=== PATIENT | male | born 1970 | race Caucasian/White ===

== ENCOUNTER 2017-06-12 11:31 | Observation (INO) | payer OTHER ==
[~2017-06-12] VITALS: Ht 170.2 cm; Wt 71.1 kg
[~2017-06-12 11:31] MED LIST: ACET120S PR; ALPR.25 PO; AMLO10 PO; AMOX500 PO; BUSP15 PO; CYCL10 PO; ESCI10 PO; GABA100 PO; HTN MED; HYDACE5 PO; IBUP400 PO; IBUP800 PO; LISI20 PO; METPRE4DP PO; NAPR500 PO; Pepcid20 MG PO; RXHYDACE PO; SILSUL1TC TOP; TRAM50 PO; TRAZ50 PO; Tylenol325 MG PO; Zestril30 MG PO
[2017-06-12] MEDS ORDERED: AMLO10 PO (11:58)
[2017-06-12] MEDS ORDERED: CITA20 PO (11:59)
[2017-06-12 12:38] LABS: BASOPHILS ABSOLUTE AUTO 0.02 K/mm3 (0.00-0.23); BASOPHILS PERCENT AUTO 0 % (0-2); EOSINOPHILS PERCENT AUTO 0 % (0-6); Hematocrit 42.5 % (37.0-53.0); Hemoglobin 14.8 g/dL (13.5-17.5); IMMATURE GRAN ABSOLUTE AUTO 0.03 K/mm3 (0.00-0.10); IMMATURE GRAN PERCENT AUTO 0 % (0-1); LYMPHOCYTES ABSOLUTE AUTO 1.12 K/mm3 (0.84-5.20); LYMPHOCYTES PERCENT AUTO 13 % (21-46); MONOCYTES ABSOLUTE AUTO 0.67 K/mm3 (0.16-1.47); MONOCYTES PERCENT AUTO 8 % (4-13); Mean Corpuscular HGB Conc 34.8 g/dL (31.5-36.5); Mean Corpuscular Volume 92 fL (80-100); Mean Platelet Volume 9.6 fL (9.1-12.4); NEUTROPHILS ABSOLUTE AUTO 7.09 K/mm3 (1.96-9.15); NEUTROPHILS PERCENT AUTO 80 % (41-73); Platelet Count 182 K/mm3 (150-400); RDW Coefficient Variation 12.8 % (11.7-14.2); RDW Standard Deviation 43.2 fL (35.1-46.3); Red Blood Cell Count 4.63 M/mm3 (4.30-5.90); White Blood Cell Count 8.93 K/mm3 (4.00-11.30)
[2017-06-12 12:59] LABS: Alanine Aminotransfer (ALT/SGP 40 U/L (12-78); Albumin, Blood 4.4 g/dL (3.4-5.0); Albumin/Globulin Ratio 1.2 (0.8-1.8); Alk Phos 93 U/L (50-136); Anion Gap 4 mmol/L (6-16); Aspartate Aminotrans (AST/SGOT 26 U/L (12-37); Bilirubin, Total 0.5 mg/dL (0.1-1.0); Blood Urea Nitrogen 11 mg/dL (8-24); Bun/Creatinine Ratio 18.1 (12.0-20.0); CO2, Blood 28 mmol/L (21-32); Calcium, Blood 9.3 mg/dL (8.5-10.1); Chloride, Blood 102 mmol/L (98-108); Creatinine, Blood 0.61 mg/dL (0.60-1.20); Globulin, Blood 3.8 g/dL (2.2-4.0); Glomerular Filtration Rate >60 (60-); Glucose, Blood 99 mg/dL (70-99); Potassium, Blood 3.9 mmol/L (3.5-5.5); Sodium, Blood 134 mmol/L (136-145); Total Protein, Blood 8.2 g/dL (6.4-8.2); Troponin I <0.015 ng/mL (0.000-0.040)
[2017-06-12 13:26] LABS: U Amphetamine Screen Not Detected; U Barbituate Screen Not Detected; U Benzodiazapine Screen Not Detected; U Buprenorphine Screen Not Detected; U Cannabinoids Screen Not Detected; U Cocaine Screen Not Detected; U Methadone Screen Not Detected; U Methamphetamine Screen Not Detected; U Opiates Screen Not Detected; U Oxycodone Screen Not Detected; U Phencyclidine Screen Not Detected; U Propoxyphene Screen Not Detected
[2017-06-12] MEDS ORDERED: ASPI81CH PO (16:56)
== END 2017-06-13 16:07 | disposition home or self-care (01) ==
LOC: ER 11:31 → MEDS 11:32 → ENPENDDIS 06-13 10:00 → MEDS 06-13 16:07
PROVIDERS: Emergency Medicine
DX: R07.9 Chest pain, unspecified (principal); I10 Essential (primary) hypertension; F17.210 Nicotine dependence, cigarettes, uncomplicated; F41.8 Other specified anxiety disorders; Z79.01 Long term (current) use of anticoagulants; Z88.8 Allergy status to other drugs, medicaments and biological substances; Z79.899 Other long term (current) drug therapy
CPT/HCPCS: 36415; 71046; 80053; 84484; 85025; 93005; 93010; 93017; 96361; 96372; 96374; 99285; G0378; J1650; J3490; J7120

== ENCOUNTER 2018-03-24 23:10 | Observation (INO) | payer OTHER ==
[~2018-03-24] VITALS: Ht 170.2 cm; Wt 71.0 kg
[~2018-03-24 23:10] MED LIST changes: +ACET325 PO; +ASPI325 PO; +ASPI81CH PO; +CITA20 PO; +DOCU100 PO; +METO25ER PO; +NAPR550 PO; +Naltrexone HCl50 MG PO; +Nicotine Patch1 EAC5 TD; +Nitrostat0.4 MG SL; +ONDA4ODT MM; +Triamcinolone A15 G3 TOP
[2018-03-24 23:45] LABS: Calcium, Ionized (POC) 1.05 mmol/L (1.10-1.46); Chloride (POC) 107 mmol/L (98-108); Creatinine (POC) 1.8 mg/dL (0.8-1.3); Glucose (ISTAT POC) 124 mg/dL (70-99); Hemoglobin (POC) 14.6 g/dL (13.5-17.5); Potassium (POC) 4.2 mmol/L (3.5-5.5); Sodium (POC) 137 mmol/L (135-148); Total CO2 (POC) 23 mmol/L (21-32)
[2018-03-24 23:51] LABS: BASOPHILS ABSOLUTE AUTO 0.03 K/mm3 (0.00-0.23); BASOPHILS PERCENT AUTO 1 % (0-2); EOSINOPHILS PERCENT AUTO 0 % (0-6); Hematocrit 41.7 % (37.0-53.0); Hemoglobin 14.3 g/dL (13.5-17.5); IMMATURE GRAN ABSOLUTE AUTO 0.05 K/mm3 (0.00-0.10); IMMATURE GRAN PERCENT AUTO 1 % (0-1); LYMPHOCYTES ABSOLUTE AUTO 1.98 K/mm3 (0.84-5.20); LYMPHOCYTES PERCENT AUTO 35 % (21-46); MONOCYTES ABSOLUTE AUTO 0.51 K/mm3 (0.16-1.47); MONOCYTES PERCENT AUTO 9 % (4-13); Mean Corpuscular HGB 32.6 pg (26.0-34.0); Mean Corpuscular HGB Conc 34.3 g/dL (31.5-36.5); Mean Corpuscular Volume 95 fL (80-100); Mean Platelet Volume 9.5 fL (9.1-12.4); NEUTROPHILS ABSOLUTE AUTO 3.02 K/mm3 (1.96-9.15); NEUTROPHILS PERCENT AUTO 54 % (41-73); Platelet Count 149 K/mm3 (150-400); RDW Coefficient Variation 12.5 % (11.7-14.2); RDW Standard Deviation 44.5 fL (35.1-46.3); Red Blood Cell Count 4.38 M/mm3 (4.30-5.90); White Blood Cell Count 5.59 K/mm3 (4.00-11.30)
[2018-03-25 00:15] LABS: Alanine Aminotransfer (ALT/SGP 50 U/L (12-78); Albumin, Blood 3.8 g/dL (3.4-5.0); Albumin/Globulin Ratio 1.1 (0.8-1.8); Alk Phos 96 U/L (50-136); Anion Gap 11 mmol/L (6-16); Aspartate Aminotrans (AST/SGOT 45 U/L (12-37); Bilirubin, Total 0.2 mg/dL (0.1-1.0); Blood Urea Nitrogen 15 mg/dL (8-24); Bun/Creatinine Ratio 9.7 (12.0-20.0); CO2, Blood 23 mmol/L (21-32); Calcium, Blood 8.2 mg/dL (8.5-10.1); Chloride, Blood 105 mmol/L (98-108); Creatinine, Blood 1.55 mg/dL (0.60-1.20); Ethanol (Alcohol), Blood, Med 269 mg/dL; Globulin, Blood 3.5 g/dL (2.2-4.0); Glomerular Filtration Rate 51 (60-); Glucose, Blood 118 mg/dL (70-99); Potassium, Blood 4.2 mmol/L (3.5-5.5); Salicylate 5.9 mg/dL (2.8-20.0); Sodium, Blood 139 mmol/L (136-145); Total Protein, Blood 7.3 g/dL (6.4-8.2)
[2018-03-25 00:18] LABS: PCO2 Arterial 43.5 mmHg (35-45); PO2 Arterial 104 mmHg (80-100); pH Blood Arterial 7.34 (7.35-7.45)
[2018-03-25 00:22] LABS: Acetaminophen, Random <2.0 ug/mL (10.0-30.0)
[2018-03-25 01:36] LABS: Adenovirus F 40/41 Detected (NOT DETECT); Astrovirus Not Detected (NOT DETECT); Campylobacter Sp Not Detected (NOT DETECT); Cryptosporidium Not Detected (NOT DETECT); Cyclospora Cayetanensis Not Detected (NOT DETECT); E. Coli O157 Not Detected (NOT DETECT); Entamoeba Histolytica Not Detected (NOT DETECT); Enteroaggregative E. coli-EAEC Not Detected (NOT DETECT); Enteropathogenic E. coli-EPEC Detected (NOT DETECT); Enterotoxigenic E. coli-ETEC Not Detected (NOT DETECT); Giardia Lamblia Not Detected (NOT DETECT); Norovirus GI/GII Not Detected (NOT DETECT); Plesiomonas Shigelloides Not Detected (NOT DETECT); Rotavirus A Not Detected (NOT DETECT); Salmonella Sp Not Detected (NOT DETECT); Sapovirus Not Detected (NOT DETECT); Shiga Toxin-prod E. coli-STEC Not Detected (NOT DETECT); Shigella/Enteroin E. coli-EIEC Not Detected (NOT DETECT); Vibrio Cholerae Not Detected (NOT DETECT); Vibrio Sp Not Detected (NOT DETECT); Yersinia Enterocolitica Not Detected (NOT DETECT)
[2018-03-25 01:59] LABS: Troponin I 0.025 ng/mL (0.000-0.040)
[2018-03-25] MEDS ORDERED: GABA100 PO (02:41)
[2018-03-25] MEDS ORDERED: PRAZ1 PO (02:42)
[2018-03-25 02:54] LABS: Source, Urine Clean Catch
[2018-03-25 03:05] LABS: Bilirubin, Urine Neg (Neg); Blood, Urine Neg (Neg); Glucose Qualitative, Urine Neg (Neg); Ketones, Urine 1+ (Neg); Leukocyte Esterase, Urine Neg (Neg); Nitrite, Urine Neg (Neg); Protein, Urine 2+ (Neg); Specific Gravity, Urine 1.015 (1.003-1.022); Urobilinogen, Urine NORM (Normal)
[2018-03-25 03:14] LABS: Appearance, Urine Clear (Clear); Color, Urine Yellow (P-Yellow)
[2018-03-25 03:15] LABS: Amorphous Light (0-Heavy); Bacteria Rare /hpf; Granular Casts 0-2 /lpf (0); Mucus Light (0-Heavy); Red Blood Cells, Urine Not Seen /hpf (0-2); Squamous Epithelial Cells Few /hpf (Few); White Blood Cells, Urine Not Seen /hpf (0-5)
[2018-03-25 03:21] LABS: U Amphetamine Screen Not Detected; U Barbituate Screen Not Detected; U Benzodiazapine Screen Not Detected; U Buprenorphine Screen Not Detected; U Cannabinoids Screen Not Detected; U Cocaine Screen Not Detected; U Methadone Screen Not Detected; U Methamphetamine Screen Not Detected; U Opiates Screen Not Detected; U Oxycodone Screen Not Detected; U Phencyclidine Screen Not Detected; U Propoxyphene Screen Not Detected
[2018-03-25 05:07] LABS: Hematocrit 37.7 % (37.0-53.0); Hemoglobin 12.4 g/dL (13.5-17.5); Mean Corpuscular HGB 31.9 pg (26.0-34.0); Mean Corpuscular HGB Conc 32.9 g/dL (31.5-36.5); Mean Corpuscular Volume 97 fL (80-100); Mean Platelet Volume 9.4 fL (9.1-12.4); Platelet Count 125 K/mm3 (150-400); RDW Coefficient Variation 12.7 % (11.7-14.2); RDW Standard Deviation 45.2 fL (35.1-46.3); Red Blood Cell Count 3.89 M/mm3 (4.30-5.90); White Blood Cell Count 5.71 K/mm3 (4.00-11.30)
[2018-03-25 05:27] LABS: Alanine Aminotransfer (ALT/SGP 44 U/L (12-78); Albumin, Blood 3.5 g/dL (3.4-5.0); Albumin/Globulin Ratio 1.2 (0.8-1.8); Alk Phos 84 U/L (50-136); Anion Gap 9 mmol/L (6-16); Aspartate Aminotrans (AST/SGOT 44 U/L (12-37); Bilirubin, Total 0.5 mg/dL (0.1-1.0); Blood Urea Nitrogen 13 mg/dL (8-24); Bun/Creatinine Ratio 15.6 (12.0-20.0); CO2, Blood 23 mmol/L (21-32); Chloride, Blood 109 mmol/L (98-108); Creatinine, Blood 0.83 mg/dL (0.60-1.20); Globulin, Blood 2.9 g/dL (2.2-4.0); Glomerular Filtration Rate >60 (60-); Glucose, Blood 92 mg/dL (70-99); Sodium, Blood 141 mmol/L (136-145); Total Protein, Blood 6.4 g/dL (6.4-8.2)
[2018-03-25 05:38] LABS: Troponin I 0.021 ng/mL (0.000-0.040)
[2018-03-25 06:00] LABS: CHOL/HDL RATIO 2.4; Cholesterol 197 mg/dL (50-200); HDL Cholesterol 82 mg/dL (>39); LDL/HDL RATIO 1.1; Low Density Lipoprotein Chol 91 mg/dL (0-110); Triglycerides 120 mg/dL (30-160); Very Low Density Lipoprot Chol 24 mg/dL (6-32)
[2018-03-25] MEDS ORDERED: ASPI81CH PO (12:20)
[2018-03-25] MEDS ORDERED: MELATONIN10 M1 PO (12:31)
[2018-03-25] MEDS ORDERED: METO50ER PO (12:31)
[2018-03-25] MEDS ORDERED: NAPR550 PO (12:32)
--- NOTE | 2018-03-25 19:40 | NUR ---
ASSUMED CARE PT RESTING IN ROOM WITH SPOUSE AT BEDSIDE. PER DAY SHIFT PT HAS EXHIBITED FEW WITHDRAWL SYMPTOMS AND WAS MEDICATED ONCE. PT HAS BEEN COOPERATIVE W/ CARE AND USES CALL LIGHT APPROPRIATELY. PT DENIES ABD PAIN. REPORTS MILD HEADACHE. CIWA SCORE OF 4 AT THIS TIME. CALL LIGHT IN REACH. BED ALARM ON FOR SAFETY.
[2018-03-26 04:11] LABS: BASOPHILS ABSOLUTE AUTO 0.02 K/mm3 (0.00-0.23); BASOPHILS PERCENT AUTO 0 % (0-2); EOSINOPHILS PERCENT AUTO 0 % (0-6); Hematocrit 38.8 % (37.0-53.0); IMMATURE GRAN ABSOLUTE AUTO 0.01 K/mm3 (0.00-0.10); IMMATURE GRAN PERCENT AUTO 0 % (0-1); LYMPHOCYTES ABSOLUTE AUTO 0.79 K/mm3 (0.84-5.20); LYMPHOCYTES PERCENT AUTO 16 % (21-46); MONOCYTES PERCENT AUTO 8 % (4-13); Mean Corpuscular HGB 31.9 pg (26.0-34.0); Mean Corpuscular HGB Conc 33.5 g/dL (31.5-36.5); Mean Corpuscular Volume 95 fL (80-100); Mean Platelet Volume 9.9 fL (9.1-12.4); NEUTROPHILS ABSOLUTE AUTO 3.72 K/mm3 (1.96-9.15); NEUTROPHILS PERCENT AUTO 75 % (41-73); Platelet Count 123 K/mm3 (150-400); RDW Coefficient Variation 12.2 % (11.7-14.2); RDW Standard Deviation 42.5 fL (35.1-46.3); Red Blood Cell Count 4.07 M/mm3 (4.30-5.90); White Blood Cell Count 4.94 K/mm3 (4.00-11.30)
[2018-03-26 04:38] LABS: Albumin, Blood 3.6 g/dL (3.4-5.0); Anion Gap 8 mmol/L (6-16); Blood Urea Nitrogen 14 mg/dL (8-24); Bun/Creatinine Ratio 17.9 (12.0-20.0); CO2, Blood 26 mmol/L (21-32); Calcium, Blood 8.6 mg/dL (8.5-10.1); Chloride, Blood 103 mmol/L (98-108); Creatinine, Blood 0.78 mg/dL (0.60-1.20); Glomerular Filtration Rate >60 (60-); Glucose, Blood 90 mg/dL (70-99); Phosphorus, Blood 2.7 mg/dL (2.5-4.9); Potassium, Blood 3.5 mmol/L (3.5-5.5); Sodium, Blood 137 mmol/L (136-145)
--- NOTE | 2018-03-26 05:39 | NUR ---
SHIFT SUMMARY PT SLEEPING IN ROOM COMFORTABLY WITH SPOUSE AT BEDSIDE. PT HAD NO ACUTE CHANGES IN STATUS SINCE ASSESSMENT. CIWA CORES EVALUATED T/O SHIFT FROM 5-7. PT WAS MEDICATED TWICE FOR WITHDRAWL SYMPTOMS. PT CURRENTLY SLEEPING. NO TREMORS NOTED, VISIBLY REDUCED AGGITATION. RESP EVEN UNLABORED ON 2L NC W/ SATS >92%. DENIES PAIN AT THIS TIME. PT DENIES ANY ABD PAIN. REPORTS FEELS HUNGRY. CALL LIGHT IS IN REACH. PT CALLS APPROPRIATELY.
--- NOTE | 2018-03-26 12:30 | NUR ---
Assumed Care: Assumed care of pt at approx 0700. VSS. In no apparent sign of distress. Pt is A&Ox4. CIWA very stable at this time. at bedside. Pt/ educated on ETOH abuse and effect that it has on his liver, and long-term potential consequences of continued drinking. Pt is appropriate at this time. See shift assessment for detailed assessment. Pt is currently resting in bed with call light within reach. Denies any further questions, complaints or requests at thist time. Will continue to monitor.
--- NOTE | 2018-03-26 12:33 | NUR ---
Update: Dr. Toribio in to see pt. Plan is to DC home. Pt will need to follow-up with PCP to obtain prescription for medications to help with withdrawal and possibly need to check in to detox center after DC per Dr. Toribio. Per Dr. Toribio, pt may have 1-2 beers/day once DC home for withdrawals, but needs to follow-up with his PCP and ultimately needs to quit drinking. Pt is currently resting in bed with call light within reach. Denies any further questions, complaints or requests at this time. Will continue to monitor until pt is discharged.
--- NOTE | 2018-03-26 13:11 | NUR ---
Spiritual care visit conducted. Patient was sitting in a chair in his room when I entered the patient's room. Patient and patient's , Sade, welcomed me after I introduced myself and explained the department I am from. Patient and Sade explained about the recent loss of their daughter, the loss of Sade's job and their family unit complications. I listened empathically, provided spiritual direction and grief support and I provided paryer. Patient and Sade responded well to all interventions and showed signs of restored ffaith and renewed hope. Patient and Sade expressed gratitude for my visit
--- NOTE | 2018-03-26 15:54 | NUR ---
Discharge: Pt discharged at approx 1343. VSS. In no apparent sign of distress. Pt discharged with , all belongings in hand and discharge education provided. Pt and family deny any further questions, complaints or requests at time of discharge.
== END 2018-03-26 13:43 | disposition home or self-care (01) ==
LOC: ER 23:10 → PCU 23:11 → ERHOLD 23:11 → PCU 03-25 12:10 → UNDODEPER 03-25 12:16 → PCU 03-26 13:43
PROVIDERS: Emergency Medicine; Family Medicine; ADMIT Internal Medicine
DX: A41.9 Sepsis, unspecified organism (principal); R65.20 Severe sepsis without septic shock; N17.9 Acute kidney failure, unspecified; I95.9 Hypotension, unspecified; F10.129 Alcohol abuse with intoxication, unspecified; K52.9 Noninfective gastroenteritis and colitis, unspecified; I10 Essential (primary) hypertension; F41.9 Anxiety disorder, unspecified; R22.0 Localized swelling, mass and lump, head; R74.8 Abnormal levels of other serum enzymes; L40.9 Psoriasis, unspecified; F17.210 Nicotine dependence, cigarettes, uncomplicated; Z79.899 Other long term (current) drug therapy; Z79.82 Long term (current) use of aspirin; Z88.6 Allergy status to analgesic agent
CPT/HCPCS: 36415; 36600; 70450; 72125; 76705; 80047; 80053; 80061; 80069; 81001; 82550; 82803; 83605; 83690; 84443; 84484; 85014; 85025; 85027; 87040; 87507; 93005; 93010; 96361; 96372; 96374; 96376; 99285-25; G0378; G0480; J1650; J2060; J7030

== ENCOUNTER 2018-11-16 11:24 | Emergency (ER) | payer OTHER ==
[~2018-11-16] VITALS: Ht 170.2 cm; Wt 77.1 kg
[~2018-11-16 11:24] MED LIST changes: +MELATONIN10 M1 PO; +METO50ER PO; +PRAZ1 PO
[2018-11-16] MEDS ORDERED: Augmentin 875-1 EACH PO (13:00)
== END 2018-11-16 13:21 | disposition home or self-care (01) ==
LOC: ER 11:24
DX: S91.152A Open bite of left great toe without damage to nail, initial encounter (principal); I10 Essential (primary) hypertension; F41.9 Anxiety disorder, unspecified; F17.200 Nicotine dependence, unspecified, uncomplicated; Z88.8 Allergy status to other drugs, medicaments and biological substances; Z79.899 Other long term (current) drug therapy; Z79.82 Long term (current) use of aspirin; W53.11XA Bitten by rat, initial encounter
CPT/HCPCS: 99283

== ENCOUNTER 2018-12-11 20:36 | Emergency (ER) | payer OTHER ==
[~2018-12-11] VITALS: Ht 170.2 cm; Wt 68.0 kg
[~2018-12-11 20:36] MED LIST changes: +Augmentin 875-1 EACH PO
[2018-12-11 21:01] LABS: BASOPHILS ABSOLUTE AUTO 0.01 K/mm3 (0.00-0.23); BASOPHILS PERCENT AUTO 0 % (0-2); EOSINOPHILS PERCENT AUTO 0 % (0-6); Hematocrit 45.4 % (37.0-53.0); Hemoglobin 15.4 g/dL (13.5-17.5); IMMATURE GRAN ABSOLUTE AUTO 0.06 K/mm3 (0.00-0.10); IMMATURE GRAN PERCENT AUTO 1 % (0-1); LYMPHOCYTES ABSOLUTE AUTO 0.97 K/mm3 (0.84-5.20); LYMPHOCYTES PERCENT AUTO 11 % (21-46); MONOCYTES ABSOLUTE AUTO 0.18 K/mm3 (0.16-1.47); MONOCYTES PERCENT AUTO 2 % (4-13); Mean Corpuscular HGB 31.2 pg (26.0-34.0); Mean Corpuscular HGB Conc 33.9 g/dL (31.5-36.5); Mean Corpuscular Volume 92 fL (80-100); Mean Platelet Volume 9.6 fL (9.1-12.4); NEUTROPHILS ABSOLUTE AUTO 7.29 K/mm3 (1.96-9.15); NEUTROPHILS PERCENT AUTO 86 % (41-73); Platelet Count 137 K/mm3 (150-400); RDW Coefficient Variation 12.1 % (11.7-14.2); RDW Standard Deviation 41.1 fL (35.1-46.3); Red Blood Cell Count 4.93 M/mm3 (4.30-5.90); White Blood Cell Count 8.51 K/mm3 (4.00-11.30)
[2018-12-11 21:14] LABS: Anion Gap 9 mmol/L (6-16); Blood Urea Nitrogen 14 mg/dL (8-24); CO2, Blood 23 mmol/L (21-32); Chloride, Blood 101 mmol/L (98-108); Creatinine, Blood 0.87 mg/dL (0.60-1.20); Glomerular Filtration Rate >60 (60-); Glucose, Blood 113 mg/dL (70-99); Sodium, Blood 133 mmol/L (136-145)
[2018-12-11] MEDS ORDERED: Pepcid20 MG PO (23:49)
[2018-12-11] MEDS ORDERED: BENADRYL25 MG PO (23:49)
[2018-12-11] MEDS ORDERED: Prednisone20 MG PO (23:49)
== END 2018-12-12 00:44 | disposition home or self-care (01) ==
LOC: ER 20:36
PROVIDERS: Physician Assistant
DX: L50.0 Allergic urticaria (principal); I10 Essential (primary) hypertension; Z88.6 Allergy status to analgesic agent; Z79.82 Long term (current) use of aspirin; Z79.899 Other long term (current) drug therapy; Z87.891 Personal history of nicotine dependence
CPT/HCPCS: 36415; 80048; 85025; 93005; 93010; 96361; 96372-59; 96374; 96375; 99283-25; J1100; J1885; J7030

== ENCOUNTER 2019-02-16 16:34 | Emergency (ER) | payer OTHER ==
[~2019-02-16] VITALS: Ht 170.2 cm; Wt 72.6 kg
[~2019-02-16 16:34] MED LIST changes: +BENADRYL25 MG PO; +Prednisone20 MG PO
[2019-02-16 17:53] LABS: Source, Urine Clean Catch
[2019-02-16 17:53] LABS: BASOPHILS ABSOLUTE AUTO 0.03 K/mm3 (0.00-0.23); BASOPHILS PERCENT AUTO 1 % (0-2); EOSINOPHILS PERCENT AUTO 0 % (0-6); Hematocrit 42.8 % (37.0-53.0); Hemoglobin 14.2 g/dL (13.5-17.5); IMMATURE GRAN ABSOLUTE AUTO 0.01 K/mm3 (0.00-0.10); IMMATURE GRAN PERCENT AUTO 0 % (0-1); LYMPHOCYTES ABSOLUTE AUTO 0.72 K/mm3 (0.84-5.20); LYMPHOCYTES PERCENT AUTO 18 % (21-46); MONOCYTES ABSOLUTE AUTO 0.36 K/mm3 (0.16-1.47); MONOCYTES PERCENT AUTO 9 % (4-13); Mean Corpuscular HGB 30.5 pg (26.0-34.0); Mean Corpuscular HGB Conc 33.2 g/dL (31.5-36.5); Mean Corpuscular Volume 92 fL (80-100); Mean Platelet Volume 9.1 fL (9.1-12.4); NEUTROPHILS ABSOLUTE AUTO 2.89 K/mm3 (1.96-9.15); NEUTROPHILS PERCENT AUTO 72 % (41-73); Platelet Count 145 K/mm3 (150-400); RDW Coefficient Variation 12.6 % (11.7-14.2); RDW Standard Deviation 42.6 fL (35.1-46.3); Red Blood Cell Count 4.65 M/mm3 (4.30-5.90); White Blood Cell Count 4.01 K/mm3 (4.00-11.30)
[2019-02-16 18:04] LABS: Alanine Aminotransfer (ALT/SGP 69 U/L (12-78); Albumin, Blood 3.9 g/dL (3.4-5.0); Alk Phos 98 U/L (50-136); Anion Gap 9 mmol/L (6-16); Aspartate Aminotrans (AST/SGOT 52 U/L (12-37); Bilirubin, Total 0.3 mg/dL (0.1-1.0); Blood Urea Nitrogen 9 mg/dL (8-24); Bun/Creatinine Ratio 13.6 (12.0-20.0); CO2, Blood 26 mmol/L (21-32); Calcium, Blood 8.7 mg/dL (8.5-10.1); Chloride, Blood 104 mmol/L (98-108); Creatinine, Blood 0.66 mg/dL (0.60-1.20); Globulin, Blood 3.9 g/dL (2.2-4.0); Glomerular Filtration Rate >60 (60-); Glucose, Blood 96 mg/dL (70-99); Potassium, Blood 3.9 mmol/L (3.5-5.5); Sodium, Blood 139 mmol/L (136-145); Total Protein, Blood 7.8 g/dL (6.4-8.2)
[2019-02-16 18:05] LABS: Bilirubin, Urine Neg (Neg); Blood, Urine 1+ (Neg); Glucose Qualitative, Urine Neg (Neg); Ketones, Urine 1+ (Neg); Leukocyte Esterase, Urine 1+ (Neg); Nitrite, Urine Neg (Neg); Protein, Urine 2+ (Neg); Urobilinogen, Urine NORM (Normal); pH, Urine 6.5 (5.0-8.0)
[2019-02-16 18:23] LABS: Appearance, Urine Clear (Clear); Color, Urine Yellow (P-Yellow)
[2019-02-16 18:26] LABS: Bacteria Rare /hpf; Red Blood Cells, Urine 0-2 /hpf (0-2); Squamous Epithelial Cells Rare /hpf (Few); White Blood Cells, Urine 0-2 /hpf (0-5)
== END 2019-02-16 19:19 | disposition home or self-care (01) ==
LOC: ER 16:34
PROVIDERS: Emergency Medicine
DX: R20.8 Other disturbances of skin sensation (principal); F41.9 Anxiety disorder, unspecified; I10 Essential (primary) hypertension; Z87.891 Personal history of nicotine dependence
CPT/HCPCS: 70450; 71046; 80053; 81001; 85025; 87086; 93005; 93010; 99285-25

== ENCOUNTER 2019-03-30 18:30 | Observation (INO) | payer OTHER ==
[~2019-03-30] VITALS: Ht 170.2 cm; Wt 72.6 kg
[2019-03-30 19:33] LABS: BASOPHILS ABSOLUTE AUTO 0.04 K/mm3 (0.00-0.23); BASOPHILS PERCENT AUTO 1 % (0-2); EOSINOPHILS PERCENT AUTO 0 % (0-6); Hematocrit 47.4 % (37.0-53.0); Hemoglobin 15.7 g/dL (13.5-17.5); IMMATURE GRAN ABSOLUTE AUTO 0.02 K/mm3 (0.00-0.10); IMMATURE GRAN PERCENT AUTO 0 % (0-1); LYMPHOCYTES ABSOLUTE AUTO 1.35 K/mm3 (0.84-5.20); LYMPHOCYTES PERCENT AUTO 28 % (21-46); MONOCYTES ABSOLUTE AUTO 0.54 K/mm3 (0.16-1.47); MONOCYTES PERCENT AUTO 11 % (4-13); Mean Corpuscular HGB 31.3 pg (26.0-34.0); Mean Corpuscular HGB Conc 33.1 g/dL (31.5-36.5); Mean Corpuscular Volume 95 fL (80-100); Mean Platelet Volume 9.1 fL (9.1-12.4); NEUTROPHILS ABSOLUTE AUTO 2.88 K/mm3 (1.96-9.15); NEUTROPHILS PERCENT AUTO 60 % (41-73); Platelet Count 173 K/mm3 (150-400); RDW Coefficient Variation 12.6 % (11.7-14.2); RDW Standard Deviation 44.2 fL (35.1-46.3); Red Blood Cell Count 5.01 M/mm3 (4.30-5.90); White Blood Cell Count 4.83 K/mm3 (4.00-11.30)
[2019-03-30] MEDS ORDERED: DISULFIRAM500 MG PO (19:36)
[2019-03-30] MEDS ORDERED: CHLO5 PO (19:36)
[2019-03-30] MEDS ORDERED: TOPROL XL50 M1 PO (19:36)
[2019-03-30] MEDS ORDERED: ESCITALOPRAM OX10 M1 PO (19:36)
[2019-03-30] MEDS ORDERED: LISI20 PO (19:37)
[2019-03-30 19:46] LABS: U Amphetamine Screen Not Detected; U Barbituate Screen Not Detected; U Benzodiazapine Screen Not Detected; U Buprenorphine Screen Not Detected; U Cannabinoids Screen Not Detected; U Cocaine Screen Not Detected; U Methadone Screen Not Detected; U Methamphetamine Screen Not Detected; U Opiates Screen Not Detected; U Oxycodone Screen Not Detected; U Phencyclidine Screen Not Detected; U Propoxyphene Screen Not Detected
[2019-03-30 20:05] LABS: Alanine Aminotransfer (ALT/SGP 26 U/L (12-78); Albumin/Globulin Ratio 1.1 (0.8-1.8); Alk Phos 83 U/L (50-136); Anion Gap 5 mmol/L (6-16); Aspartate Aminotrans (AST/SGOT 20 U/L (12-37); Bilirubin, Total 0.2 mg/dL (0.1-1.0); Blood Urea Nitrogen 6 mg/dL (8-24); Bun/Creatinine Ratio 9.8 (12.0-20.0); CO2, Blood 27 mmol/L (21-32); Calcium, Blood 8.9 mg/dL (8.5-10.1); Chloride, Blood 107 mmol/L (98-108); Creatinine, Blood 0.61 mg/dL (0.60-1.20); Ethanol (Alcohol), Blood, Med 300 mg/dL; Globulin, Blood 3.8 g/dL (2.2-4.0); Glomerular Filtration Rate >60 (60-); Glucose, Blood 93 mg/dL (70-99); Potassium, Blood 3.5 mmol/L (3.5-5.5); Sodium, Blood 139 mmol/L (136-145); Total Protein, Blood 7.8 g/dL (6.4-8.2)
[2019-03-30 20:09] LABS: Thyroid Stimulating Hormone 0.637 uIU/mL (0.360-4.800)
[2019-03-30 20:10] LABS: Acetaminophen, Random <2.0 ug/mL (10.0-30.0)
== END 2019-03-31 09:43 | disposition home or self-care (01) ==
LOC: ER 18:30 → EOR 18:31
PROVIDERS: Physician Assistant; ADMIT Emergency Medicine
DX: R45.851 Suicidal ideations (principal); I10 Essential (primary) hypertension; F41.9 Anxiety disorder, unspecified; Z88.6 Allergy status to analgesic agent; Z79.82 Long term (current) use of aspirin; Z79.899 Other long term (current) drug therapy; Z87.891 Personal history of nicotine dependence; F10.129 Alcohol abuse with intoxication, unspecified
CPT/HCPCS: 36415; 80053; 83690; 84443; 85025; 99285; G0378; G0480

== ENCOUNTER 2019-07-05 18:09 | Emergency (ER) | payer OTHER ==
[~2019-07-05] VITALS: Ht 170.2 cm; Wt 70.3 kg
[~2019-07-05 18:09] MED LIST changes: +CHLO5 PO; +DISULFIRAM500 MG PO; +ESCITALOPRAM OX10 M1 PO; +TOPROL XL50 M1 PO
[2019-07-05 19:02] LABS: Source, Urine Clean Catch
[2019-07-05 19:05] LABS: Bilirubin, Urine Neg (Neg); Blood, Urine Neg (Neg); Glucose Qualitative, Urine Neg (Neg); Ketones, Urine 1+ (Neg); Leukocyte Esterase, Urine Neg (Neg); Nitrite, Urine Neg (Neg); Protein, Urine Neg (Neg); Urobilinogen, Urine NORM (Normal)
[2019-07-05 19:08] LABS: BASOPHILS ABSOLUTE AUTO 0.03 K/mm3 (0.00-0.23); BASOPHILS PERCENT AUTO 1 % (0-2); EOSINOPHILS PERCENT AUTO 0 % (0-6); Hematocrit 40.9 % (37.0-53.0); Hemoglobin 13.7 g/dL (13.5-17.5); IMMATURE GRAN ABSOLUTE AUTO 0.02 K/mm3 (0.00-0.10); IMMATURE GRAN PERCENT AUTO 0 % (0-1); LYMPHOCYTES ABSOLUTE AUTO 1.25 K/mm3 (0.84-5.20); LYMPHOCYTES PERCENT AUTO 25 % (21-46); MONOCYTES ABSOLUTE AUTO 0.49 K/mm3 (0.16-1.47); MONOCYTES PERCENT AUTO 10 % (4-13); Mean Corpuscular HGB 31.3 pg (26.0-34.0); Mean Corpuscular HGB Conc 33.5 g/dL (31.5-36.5); Mean Corpuscular Volume 93 fL (80-100); Mean Platelet Volume 9.4 fL (9.1-12.4); NEUTROPHILS PERCENT AUTO 65 % (41-73); Platelet Count 86 K/mm3 (150-400); RDW Coefficient Variation 14.1 % (11.7-14.2); RDW Standard Deviation 48.8 fL (35.1-46.3); Red Blood Cell Count 4.38 M/mm3 (4.30-5.90); White Blood Cell Count 5.09 K/mm3 (4.00-11.30)
[2019-07-05 19:12] LABS: Appearance, Urine Clear (Clear); Color, Urine Yellow (P-Yellow)
[2019-07-05 19:28] LABS: Alanine Aminotransfer (ALT/SGP 93 U/L (12-78); Albumin, Blood 4.2 g/dL (3.4-5.0); Albumin/Globulin Ratio 1.1 (0.8-1.8); Alk Phos 106 U/L (50-136); Anion Gap 11 mmol/L (6-16); Aspartate Aminotrans (AST/SGOT 92 U/L (12-37); Bilirubin, Total 0.6 mg/dL (0.1-1.0); Blood Urea Nitrogen 11 mg/dL (8-24); Bun/Creatinine Ratio 17.7 (12.0-20.0); CO2, Blood 22 mmol/L (21-32); Calcium, Blood 8.8 mg/dL (8.5-10.1); Chloride, Blood 103 mmol/L (98-108); Creatinine, Blood 0.62 mg/dL (0.60-1.20); Globulin, Blood 3.9 g/dL (2.2-4.0); Glomerular Filtration Rate >60 (60-); Glucose, Blood 120 mg/dL (70-99); Potassium, Blood 3.7 mmol/L (3.5-5.5); Sodium, Blood 136 mmol/L (136-145); Total Protein, Blood 8.1 g/dL (6.4-8.2)
== END 2019-07-05 20:53 | disposition home or self-care (01) ==
LOC: ER 18:09
PROVIDERS: Emergency Medicine
DX: S30.1XXA Contusion of abdominal wall, initial encounter (principal); I10 Essential (primary) hypertension; F41.9 Anxiety disorder, unspecified; F17.210 Nicotine dependence, cigarettes, uncomplicated; Z88.6 Allergy status to analgesic agent; Z79.899 Other long term (current) drug therapy; W22.8XXA Striking against or struck by other objects, initial encounter
CPT/HCPCS: 36415; 80053; 81003; 83690; 85025; 93005; 93010; 99283-25

== ENCOUNTER 2020-03-28 00:22 | Emergency (ER) | payer OTHER ==
[~2020-03-28] VITALS: Ht 170.2 cm; Wt 74.8 kg
[2020-03-28] MEDS ORDERED: ESCI10 PO (01:05)
[2020-03-28] MEDS ORDERED: OMEP20ER PO (01:05)
[2020-08-03] MEDS ORDERED: Neurontin 100100 MG PO (22:00)
[2020-08-03] MEDS ORDERED: Naltrexone HCl50 MG PO (22:00)
== END 2020-03-28 01:07 | disposition home or self-care (01) ==
LOC: ER 00:22
DX: F10.129 Alcohol abuse with intoxication, unspecified (principal); I10 Essential (primary) hypertension; F17.210 Nicotine dependence, cigarettes, uncomplicated; Z86.73 Personal history of transient ischemic attack (TIA), and cerebral infarction without residual deficits; Z88.6 Allergy status to analgesic agent; Z79.899 Other long term (current) drug therapy
CPT/HCPCS: 99284

== ENCOUNTER 2020-05-02 16:02 | Emergency (ER) | payer OTHER ==
[~2020-05-02] VITALS: Ht 170.2 cm; Wt 72.6 kg
[~2020-05-02 16:02] MED LIST changes: +OMEP20ER PO
[2020-05-02 16:35] LABS: BASOPHILS ABSOLUTE AUTO 0.04 K/mm3 (0.00-0.23); BASOPHILS PERCENT AUTO 1 % (0-2); EOSINOPHILS PERCENT AUTO 0 % (0-6); Hematocrit 44.5 % (37.0-53.0); Hemoglobin 15.1 g/dL (13.5-17.5); IMMATURE GRAN ABSOLUTE AUTO 0.02 K/mm3 (0.00-0.10); IMMATURE GRAN PERCENT AUTO 0 % (0-1); LYMPHOCYTES ABSOLUTE AUTO 1.39 K/mm3 (0.84-5.20); LYMPHOCYTES PERCENT AUTO 23 % (21-46); MONOCYTES ABSOLUTE AUTO 0.37 K/mm3 (0.16-1.47); MONOCYTES PERCENT AUTO 6 % (4-13); Mean Corpuscular HGB 31.2 pg (26.0-34.0); Mean Corpuscular HGB Conc 33.9 g/dL (31.5-36.5); Mean Corpuscular Volume 92 fL (80-100); Mean Platelet Volume 9.3 fL (9.1-12.4); NEUTROPHILS ABSOLUTE AUTO 4.11 K/mm3 (1.96-9.15); NEUTROPHILS PERCENT AUTO 69 % (41-73); Platelet Count 160 K/mm3 (150-400); RDW Coefficient Variation 13.7 % (11.7-14.2); RDW Standard Deviation 46.5 fL (35.1-46.3); Red Blood Cell Count 4.84 M/mm3 (4.30-5.90); White Blood Cell Count 5.93 K/mm3 (4.00-11.30)
[2020-05-02 16:57] LABS: Alanine Aminotransfer (ALT/SGP 35 U/L (12-78); Albumin, Blood 4.1 g/dL (3.4-5.0); Alk Phos 127 U/L (50-136); Anion Gap 5 mmol/L (6-16); Aspartate Aminotrans (AST/SGOT 43 U/L (12-37); Bilirubin, Total 0.3 mg/dL (0.1-1.0); Blood Urea Nitrogen 8 mg/dL (8-24); Bun/Creatinine Ratio 11.9 (12.0-20.0); CO2, Blood 28 mmol/L (21-32); Calcium, Blood 9.1 mg/dL (8.5-10.1); Chloride, Blood 105 mmol/L (98-108); Creatinine, Blood 0.68 mg/dL (0.60-1.20); Glomerular Filtration Rate >60 (60-); Glucose, Blood 95 mg/dL (70-99); Potassium, Blood 3.8 mmol/L (3.5-5.5); Sodium, Blood 138 mmol/L (136-145); Total Protein, Blood 8.1 g/dL (6.4-8.2)
[2020-05-02] MEDS ORDERED: DISU500 PO (18:00)
[2020-05-02] MEDS ORDERED: CYCL10 PO (18:00)
[2020-05-02] MEDS ORDERED: ESCI20 (18:01)
[2020-05-02 18:37] LABS: Creatine Kinase MB 3.6 ng/mL (0.0-3.6)
[2020-08-03] MEDS ORDERED: Neurontin 100100 MG PO (22:00)
[2020-08-03] MEDS ORDERED: Naltrexone HCl50 MG PO (22:00)
== END 2020-05-02 19:30 | disposition home or self-care (01) ==
LOC: ER 16:02
PROVIDERS: Physician Assistant
DX: H81.10 Benign paroxysmal vertigo, unspecified ear (principal); G62.1 Alcoholic polyneuropathy; I10 Essential (primary) hypertension; F17.210 Nicotine dependence, cigarettes, uncomplicated; Z79.899 Other long term (current) drug therapy; Z88.6 Allergy status to analgesic agent; Z86.73 Personal history of transient ischemic attack (TIA), and cerebral infarction without residual deficits
CPT/HCPCS: 36415; 70450; 80053; 82550; 82553; 85025; 93005; 93010; 99284-25; A9270; J7030

== ENCOUNTER → 2020-07-24 | Outpatient (CLI) | payer OTHER ==
[~2020-07-24] MED LIST changes: +DISU500 PO; +ESCI20; +Neurontin 100100 MG PO
== END | disposition home or self-care (01) ==
LOC: LAB SHORT 15:30
DX: R11.2 Nausea with vomiting, unspecified (principal)
CPT/HCPCS: 87086

== ENCOUNTER 2020-08-01 20:07 | Emergency (ER) | payer OTHER ==
[~2020-08-01] VITALS: Ht 170.2 cm; Wt 74.8 kg
[~2020-08-01 20:07] MED LIST changes: -Neurontin 100100 MG PO
[2020-08-01 21:04] LABS: BASOPHILS ABSOLUTE AUTO 0.07 K/mm3 (0.00-0.23); BASOPHILS PERCENT AUTO 1 % (0-2); EOSINOPHILS PERCENT AUTO 0 % (0-6); Hematocrit 44.9 % (37.0-53.0); Hemoglobin 15.8 g/dL (13.5-17.5); IMMATURE GRAN ABSOLUTE AUTO 0.09 K/mm3 (0.00-0.10); IMMATURE GRAN PERCENT AUTO 1 % (0-1); LYMPHOCYTES PERCENT AUTO 33 % (21-46); MONOCYTES ABSOLUTE AUTO 0.68 K/mm3 (0.16-1.47); MONOCYTES PERCENT AUTO 10 % (4-13); Mean Corpuscular HGB Conc 35.2 g/dL (31.5-36.5); Mean Corpuscular Volume 91 fL (80-100); Mean Platelet Volume 9.5 fL (9.1-12.4); NEUTROPHILS ABSOLUTE AUTO 3.56 K/mm3 (1.96-9.15); NEUTROPHILS PERCENT AUTO 54 % (41-73); Platelet Count 183 K/mm3 (150-400); RDW Coefficient Variation 12.2 % (11.7-14.2); RDW Standard Deviation 40.7 fL (35.1-46.3); Red Blood Cell Count 4.94 M/mm3 (4.30-5.90)
[2020-08-01 21:23] LABS: Alanine Aminotransfer (ALT/SGP 87 U/L (12-78); Albumin, Blood 4.1 g/dL (3.4-5.0); Alk Phos 125 U/L (50-136); Anion Gap 6 mmol/L (6-16); Aspartate Aminotrans (AST/SGOT 68 U/L (12-37); Bilirubin, Total 0.2 mg/dL (0.1-1.0); Blood Urea Nitrogen 11 mg/dL (8-24); Bun/Creatinine Ratio 12.8 (12.0-20.0); CO2, Blood 24 mmol/L (21-32); Calcium, Blood 8.6 mg/dL (8.5-10.1); Chloride, Blood 106 mmol/L (98-108); Creatinine, Blood 0.86 mg/dL (0.60-1.20); Globulin, Blood 4.1 g/dL (2.2-4.0); Glomerular Filtration Rate >60 (60-); Glucose, Blood 97 mg/dL (70-99); Potassium, Blood 4.1 mmol/L (3.5-5.5); Sodium, Blood 136 mmol/L (136-145); Total Protein, Blood 8.2 g/dL (6.4-8.2)
[2020-08-01 21:24] LABS: Ethanol (Alcohol), Blood, Med 293 mg/dL; Salicylate 4.4 mg/dL (2.8-20.0)
[2020-08-01 21:25] LABS: Acetaminophen, Random <2.0 ug/mL (10.0-30.0)
[2020-08-01 21:31] LABS: Source, Urine Clean Catch
[2020-08-01 21:33] LABS: Appearance, Urine Clear (Clear); Bilirubin, Urine Neg (Neg); Blood, Urine Neg (Neg); Color, Urine Yellow (P-Yellow); Glucose Qualitative, Urine Neg (Neg); Ketones, Urine Neg (Neg); Leukocyte Esterase, Urine Neg (Neg); Nitrite, Urine Neg (Neg); Protein, Urine 2+ (Neg); Specific Gravity, Urine 1.025 (1.003-1.022); Urobilinogen, Urine 1+ (Normal)
[2020-08-01 21:39] LABS: Bacteria Few /hpf; Mucus Light (0-Heavy); Red Blood Cells, Urine 0-2 /hpf (0-2); Squamous Epithelial Cells Not Seen /hpf (Few); White Blood Cells, Urine 0-2 /hpf (0-5)
[2020-08-01 21:43] LABS: U Amphetamine Screen Not Detected; U Barbituate Screen Not Detected; U Benzodiazapine Screen DETECTED; U Buprenorphine Screen Not Detected; U Cannabinoids Screen DETECTED; U Cocaine Screen Not Detected; U Methadone Screen Not Detected; U Methamphetamine Screen Not Detected; U Opiates Screen Not Detected; U Oxycodone Screen Not Detected; U Phencyclidine Screen Not Detected; U Propoxyphene Screen Not Detected
[2020-08-03] MEDS ORDERED: Naltrexone HCl50 MG PO (22:00)
[2020-08-03] MEDS ORDERED: Neurontin 100100 MG PO (22:00)
== END 2020-08-02 01:14 | disposition home or self-care (01) ==
LOC: ER 20:07
PROVIDERS: Emergency Medicine; Physician Assistant
DX: S00.01XA Abrasion of scalp, initial encounter (principal); I10 Essential (primary) hypertension; F17.210 Nicotine dependence, cigarettes, uncomplicated; Z88.6 Allergy status to analgesic agent; Z86.73 Personal history of transient ischemic attack (TIA), and cerebral infarction without residual deficits; Z79.899 Other long term (current) drug therapy; W01.10XA Fall on same level from slipping, tripping and stumbling with subsequent striking against unspecified object, initial encounter
CPT/HCPCS: 36415; 51702; 70450; 72125; 80053; 81001; 82140; 83690; 85025; 86850; 86900; 86901; 93005; 93010; 99284-25; G0480; L0160

== ENCOUNTER 2021-09-03 16:30 | Emergency (ER) | payer OTHER ==
[~2021-09-03] VITALS: Ht 170.2 cm; Wt 74.8 kg
[~2021-09-03 16:30] MED LIST changes: +Neurontin 100100 MG PO
[2021-09-03 17:04] LABS: BASOPHILS ABSOLUTE AUTO 0.05 K/mm3 (0.00-0.23); BASOPHILS PERCENT AUTO 1 % (0-2); EOSINOPHILS ABSOLUTE AUTO 0.15 K/mm3 (0.00-0.68); EOSINOPHILS PERCENT AUTO 3 % (0-6); Hemoglobin 13.9 g/dL (13.5-17.5); IMMATURE GRAN ABSOLUTE AUTO 0.03 K/mm3 (0.00-0.10); IMMATURE GRAN PERCENT AUTO 1 % (0-1); LYMPHOCYTES ABSOLUTE AUTO 2.11 K/mm3 (0.84-5.20); LYMPHOCYTES PERCENT AUTO 38 % (21-46); MONOCYTES ABSOLUTE AUTO 0.38 K/mm3 (0.16-1.47); MONOCYTES PERCENT AUTO 7 % (4-13); Mean Corpuscular HGB 30.9 pg (26.0-34.0); Mean Corpuscular HGB Conc 33.9 g/dL (31.5-36.5); Mean Corpuscular Volume 91 fL (80-100); Mean Platelet Volume 9.2 fL (9.1-12.4); NEUTROPHILS PERCENT AUTO 52 % (41-73); Platelet Count 190 K/mm3 (150-400); RDW Coefficient Variation 13.4 % (11.7-14.2); RDW Standard Deviation 45.1 fL (35.1-46.3); White Blood Cell Count 5.62 K/mm3 (4.00-11.30)
[2021-09-03 17:23] LABS: Albumin, Blood 3.6 g/dL (3.4-5.0); Bilirubin, Total 0.2 mg/dL (0.1-1.0); Bun/Creatinine Ratio 15.7 (12.0-20.0); Calcium, Blood 8.7 mg/dL (8.5-10.1); Creatinine, Blood 0.7 mg/dL (0.60-1.20); Globulin, Blood 3.7 g/dL (2.2-4.0); Total Protein, Blood 7.3 g/dL (6.4-8.2)
[2021-09-03] MEDS ORDERED: CHLO25 PO (21:59)
== END 2021-09-03 22:08 | disposition home or self-care (01) ==
LOC: ER 16:30
PROVIDERS: Physician Assistant
DX: F10.10 Alcohol abuse, uncomplicated (principal); F17.210 Nicotine dependence, cigarettes, uncomplicated; E72.20 Disorder of urea cycle metabolism, unspecified; I10 Essential (primary) hypertension; Z86.73 Personal history of transient ischemic attack (TIA), and cerebral infarction without residual deficits; Z79.899 Other long term (current) drug therapy; Z88.8 Allergy status to other drugs, medicaments and biological substances
CPT/HCPCS: 36415; 80053; 82140; 83735; 85025; A9270

== ENCOUNTER 2022-03-31 14:38 | Observation (INO) | payer OTHER ==
[~2022-03-31] VITALS: Ht 170.2 cm; Wt 74.5 kg
[~2022-03-31 14:38] MED LIST changes: +CHLO25 PO
[2022-03-31 15:27] LABS: BASOPHILS ABSOLUTE AUTO 0.04 K/mm3 (0.00-0.23); BASOPHILS PERCENT AUTO 1 % (0-2); EOSINOPHILS ABSOLUTE AUTO 0.04 K/mm3 (0.00-0.68); EOSINOPHILS PERCENT AUTO 1 % (0-6); Hematocrit 40.9 % (37.0-53.0); IMMATURE GRAN ABSOLUTE AUTO 0.03 K/mm3 (0.00-0.10); IMMATURE GRAN PERCENT AUTO 1 % (0-1); LYMPHOCYTES ABSOLUTE AUTO 1.05 K/mm3 (0.84-5.20); LYMPHOCYTES PERCENT AUTO 25 % (21-46); MONOCYTES ABSOLUTE AUTO 0.38 K/mm3 (0.16-1.47); MONOCYTES PERCENT AUTO 9 % (4-13); Mean Corpuscular HGB 31.6 pg (26.0-34.0); Mean Corpuscular HGB Conc 34.2 g/dL (31.5-36.5); Mean Corpuscular Volume 92 fL (80-100); Mean Platelet Volume 9.3 fL (9.1-12.4); NEUTROPHILS PERCENT AUTO 64 % (41-73); Platelet Count 162 K/mm3 (150-400); RDW Coefficient Variation 12.6 % (11.7-14.2); RDW Standard Deviation 43.1 fL (35.1-46.3); Red Blood Cell Count 4.43 M/mm3 (4.30-5.90); White Blood Cell Count 4.24 K/mm3 (4.00-11.30)
[2022-03-31] MEDS ORDERED: DISU250 PO (15:30)
[2022-03-31] MEDS ORDERED: LISI20 PO (15:30)
[2022-03-31] MEDS ORDERED: HYDCHL25 PO (15:30)
[2022-03-31] MEDS ORDERED: METO50ER PO (15:30)
[2022-03-31] MEDS ORDERED: ESCI20 PO (15:30)
[2022-03-31] MEDS ORDERED: TRAZ50 PO (15:31)
[2022-03-31] MEDS ORDERED: Naltrexone HCl50 MG PO (15:31)
[2022-03-31 15:44] LABS: Prothrombin Time Results 10.5 Sec (9.7-11.5)
[2022-03-31 15:49] LABS: Albumin, Blood 3.6 g/dL (3.4-5.0); Albumin/Globulin Ratio 1.1 (0.8-1.8); Bilirubin, Total 0.2 mg/dL (0.1-1.0); Bun/Creatinine Ratio 16.8 (12.0-20.0); Calcium, Blood 8.8 mg/dL (8.5-10.1); Creatinine, Blood 0.54 mg/dL (0.60-1.20); Globulin, Blood 3.4 g/dL (2.2-4.0); Potassium, Blood 3.7 mmol/L (3.5-5.5)
[2022-03-31 16:05] LABS: Influenza A, PCR NEGATIVE (NEGATIVE); Influenza B, PCR NEGATIVE (NEGATIVE); Resp Syncytial Virus, PCR NEGATIVE (NEGATIVE); SARS-Cov-2 (COVID-19) PCR, MMC NEGATIVE (NEGATIVE)
[2022-04-01 04:48] LABS: BASOPHILS ABSOLUTE AUTO 0.03 K/mm3 (0.00-0.23); BASOPHILS PERCENT AUTO 1 % (0-2); EOSINOPHILS PERCENT AUTO 3 % (0-6); Hematocrit 43.5 % (37.0-53.0); Hemoglobin 14.9 g/dL (13.5-17.5); IMMATURE GRAN ABSOLUTE AUTO 0.02 K/mm3 (0.00-0.10); IMMATURE GRAN PERCENT AUTO 0 % (0-1); LYMPHOCYTES ABSOLUTE AUTO 1.27 K/mm3 (0.84-5.20); LYMPHOCYTES PERCENT AUTO 20 % (21-46); MONOCYTES ABSOLUTE AUTO 0.55 K/mm3 (0.16-1.47); MONOCYTES PERCENT AUTO 9 % (4-13); Mean Corpuscular HGB Conc 34.3 g/dL (31.5-36.5); Mean Corpuscular Volume 91 fL (80-100); Mean Platelet Volume 9.3 fL (9.1-12.4); NEUTROPHILS ABSOLUTE AUTO 4.33 K/mm3 (1.96-9.15); NEUTROPHILS PERCENT AUTO 68 % (41-73); Platelet Count 152 K/mm3 (150-400); RDW Coefficient Variation 12.4 % (11.7-14.2); RDW Standard Deviation 41.1 fL (35.1-46.3)
--- NOTE | 2022-04-01 04:51 | NUR ---
SHIFT SUMMARY PT HAS BEEN RESTING QUIETLY THROUGHOUT MOST OF SHIFT. PT PLEASANT AND COOPERATIVE WITH CARE. DENIES ANY C/O ETOH WITHDRAWAL SX. CIWA'S CHARTED. WILL CONTINUE TO MONITOR AND PROVIDE CARE THROUGHOUT SHIFT.
[2022-04-01 05:07] LABS: Albumin, Blood 3.4 g/dL (3.4-5.0); Bilirubin, Total 0.6 mg/dL (0.1-1.0); Bun/Creatinine Ratio 17.5 (12.0-20.0); Calcium, Blood 8.9 mg/dL (8.5-10.1); Creatinine, Blood 0.57 mg/dL (0.60-1.20); Globulin, Blood 3.4 g/dL (2.2-4.0); Potassium, Blood 3.4 mmol/L (3.5-5.5); Total Protein, Blood 6.8 g/dL (6.4-8.2)
--- NOTE | 2022-04-01 20:02 | NUR ---
SHIFT SUMMARY: PT A&O X4, PLEASANT, MILD ANXIETY AND WITHDRAWL SYMPTOMS. PT AT THE BEGINNING OF THE SHIFT HAD A HEADACHE, TERMORS AND MILD SWEATING. PT CIWA SCORE OF 5, PT EDUCATED ON WITHDRAWL MEDICATION AND STATED HE WANTED TYLENOL FOR PAIN. CONTACTED AND ORDERS PLACE FOR TYLENOL 650MG Q6H FOR PAIN. PT FOLLOWING CIWA SCORE OF 6, PT HAD MILD HEADACHE, SWEATING, AND VISUAL AND AUDITORY HALLUCINATIONS. PT EDUCATED ON THE SERIOUSNESS OF ALCOHOL WITHDRAWAL AND THE IMPORTANTS OF ADMINISTRATING LIBRIUM AND ATIVAN FOR ALCOHOL WITHDRAWAL SYMPTOMS. PT RECEVIED LIBRIUM 50MG PO, ON REASSESSMENT PT HAD IMPROVEMENT OF SYMPTOMS AND COMFORT. PT HAS AT BEDSIDE DURING THE SHIFT AND SPENDING THE NIGHT FOR ADDED COMFORT AND SUPPORT. PT IN BED WITH CALL LIGHT WITHIN REACH.
--- NOTE | 2022-04-02 17:16 | NUR ---
DAYSHIFT SUMMARY ASSUMED CARE OF THIS PATIENT WITH PRECEPTOR MISTY MCFADDEN AT 0645. PT WAS TAKEN FOR MRI THIS AM AT 0944 AND RETURNED FROM MRI AT 1015. PATIENT WAS PLESEANT AND ALERT AND ORIENTED X4. CIWAS WERE DONE EVERY 4 HOURS ORDERED. CIWA AT 0810 WAS 7 CIWA AT 1125 WAS 3 CIWA AT 1625 WAS 0. PROVIDER GAVE ONE TIME ORDER FOR POTASSIUM TO BE GIVE THIS AFTERNOON. PT HAS BEEN RESTING COMOFRTABLY IN ROOM ALL DAY. WILL CONTIUE TO PROVIDE CARE ODERED. CALL LIGHT IS WITHIN REACH OF THIS PATIENT.
--- NOTE | 2022-04-02 18:01 | NUR ---
SENIOR ANALYST PROGRAMMER student provided patient care, RN oversaw care. Patient AOx4. Indepedent in the room. CIWA score this AM was 7, but by the end of the shift CIWA score was zero. Managed symptoms with Librium, and tylenol for LUNDBERG. MRI done today. Vitals stable. Plan is to keep patient in hospital for observation.
--- NOTE | 2022-04-03 02:38 | NUR ---
PATIENT TRANSFER RN TO RN. REPORT TAKEN FROM PETTY JAY.
--- NOTE | 2022-04-03 04:09 | NUR ---
SHIFT SUMMARY PATIENT HAD NO ACUTE CHANGES. AXO X4 AND INDEPENDENT IN ROOM. PIV REMAINS INTACT. VSS/AFEBRILE. DENIES CHEST PAIN, SOB, AND N/V. ON TELEMETRY NSR @ 62, CIWA'S ZERO. ABLE TO SLEEP MOST OF THE SHIFT. FAMILY MEMBER PRESENT IN ROOM. COOPERATIVE WITH CARE. CALL LIGHT IN REACH. BED IN LOWEST POSITION. WILL CONTINUE TO MONITOR UNTIL DAY SHIFT NURSE ASSUMES CARE.
[2022-04-03 05:26] LABS: Hematocrit 44.1 % (37.0-53.0); Hemoglobin 14.8 g/dL (13.5-17.5); Mean Corpuscular HGB 31.2 pg (26.0-34.0); Mean Corpuscular HGB Conc 33.6 g/dL (31.5-36.5); Mean Corpuscular Volume 93 fL (80-100); Mean Platelet Volume 9.7 fL (9.1-12.4); Platelet Count 148 K/mm3 (150-400); RDW Coefficient Variation 12.4 % (11.7-14.2); RDW Standard Deviation 42.7 fL (35.1-46.3); Red Blood Cell Count 4.75 M/mm3 (4.30-5.90); White Blood Cell Count 6.99 K/mm3 (4.00-11.30)
[2022-04-03 05:42] LABS: Albumin, Blood 3.6 g/dL (3.4-5.0); Bilirubin, Total 0.4 mg/dL (0.1-1.0); Bun/Creatinine Ratio 35.4 (12.0-20.0); Calcium, Blood 9.2 mg/dL (8.5-10.1); Creatinine, Blood 0.76 mg/dL (0.60-1.20); Globulin, Blood 3.7 g/dL (2.2-4.0); Magnesium, Blood 2.2 mg/dL (1.6-2.4); Potassium, Blood 3.8 mmol/L (3.5-5.5); Total Protein, Blood 7.3 g/dL (6.4-8.2)
--- NOTE | 2022-04-03 11:21 | NUR ---
DISCHARGE PT DISCHARGED HOME WITH . NO NEW ORDERS TO FAX TO [facility]. IV REMOVED. PRESSURE DRESSING APPLIED. PT ACCOMPANIED OUT VIA W/C. CONTINUE POC.
== END 2022-04-03 11:20 | disposition home or self-care (01) ==
LOC: ER 14:38 → MEDS 14:39
PROVIDERS: Emergency Medicine; Internal Medicine; ADMIT Internal Medicine
DX: I63.9 Cerebral infarction, unspecified (principal); F10.10 Alcohol abuse, uncomplicated; I10 Essential (primary) hypertension; F17.210 Nicotine dependence, cigarettes, uncomplicated; R74.8 Abnormal levels of other serum enzymes; E87.6 Hypokalemia; M48.02 Spinal stenosis, cervical region; Z20.822 Contact with and (suspected) exposure to COVID-19; Z79.899 Other long term (current) drug therapy
CPT/HCPCS: 0241U; 36415; 70450; 70496; 70498; 70551; 71045; 72141; 80053; 83690; 83735; 83880; 85025; 85027; 85610; 90686; 93005; 93010; 93306; 96361; 96365; 96366; 96372; 96374-59; 96375; 96375-59; 96376; 97110; 97112; 97161; 97165; 99285-25; A9270; G0008; G0378; G0480; J1650; J2060; J2405; J3411; J7030; J7042; Q9967

== ENCOUNTER 2022-06-10 10:23 | Emergency (ER) | payer OTHER ==
[~2022-06-10] VITALS: Ht 170.2 cm; Wt 74.8 kg
[~2022-06-10 10:23] MED LIST changes: +DISU250 PO; +ESCI20 PO; +HYDCHL25 PO
[2022-06-10 10:41] VITALS: BP 195/99
[2022-06-10] MEDS ORDERED: LIDO700A20 TOP (12:06)
== END 2022-06-10 12:15 | disposition home or self-care (01) ==
LOC: ER 10:23
DX: M54.50 Low back pain, unspecified (principal); H54.7 Unspecified visual loss; Z88.8 Allergy status to other drugs, medicaments and biological substances; Z79.899 Other long term (current) drug therapy; I10 Essential (primary) hypertension; F17.210 Nicotine dependence, cigarettes, uncomplicated
CPT/HCPCS: 72100; A9270

== ENCOUNTER 2024-01-28 06:05 | Day surgery (SDC) | payer OTHER ==
[~2024-01-28] VITALS: Ht 170.2 cm; Wt 75.1 kg
[~2024-01-28 06:05] MED LIST changes: +LIDO700A20 TOP; +Povidone-Iodine 450 DROP/30 ML Solution ONE; +Tetracaine HCl/Pf 0.5% Opth Soln 4 ml ONE
[2024-01-28] MEDS ORDERED: Diazepam 5 MG Tab ONE (06:19)
[2024-01-28] MEDS ORDERED: Triamcinolone Inj Susp 40 MG / ML 1ML Vial ONE (06:37)
[2024-01-28] MEDS ORDERED: Lidocaine HCl/Pf 1% 5 ML VIAL ONE (06:38)
[2024-01-28] MEDS ORDERED: Chantix1 MG (06:40)
[2024-01-28] MEDS ORDERED: LOSA50 (06:41)
[2024-01-28] MEDS ORDERED: Glycopyrrolate 0.2 MG/ML 5ML VIAL ONE (07:29)
[2024-01-28] MEDS ORDERED: Lidocaine HCl/Pf 1% 5 ML VIAL XX ONE (07:38)
[2024-01-28] MEDS ORDERED: Moxifloxacin HCL 0.5 MG/0.1 ML 0.4MLSYR XX ONE (07:38)
[2024-01-28] MEDS ORDERED: BSS PLUS/EPINEPHRINE IRRIGATION SOLUTION 500 ML IR ONE (07:38)
[2024-01-28] MEDS ORDERED: PHENYLEPHRINE\\TROPICAMIDE\\TETRACAINE OPHTHALMIC DILATING SOLN RIGHTEYE PRN (07:50)
[2024-01-28] MEDS ORDERED: Povidone-Iodine 450 DROP/30 ML Solution RIGHTEYE SCH (07:50)
[2024-01-28] MEDS ORDERED: Balanced Salt Epinephrine Irrigation Solution 500 mL IR SCH (07:50)
[2024-01-28] MEDS ORDERED: Lidocaine HCl/Pf 1% 5 ML VIAL XX SCH (07:55)
[2024-01-28] MEDS ORDERED: Triamcinolone Inj Susp 40 MG / ML 1ML Vial INJ SCH (07:55)
[2024-01-28] MEDS ORDERED: Moxifloxacin HCL 0.5 MG/0.1 ML 0.4MLSYR RIGHTEYE SCH (07:55)
[2024-01-28 07:56] VITALS: BP 170/91
[2024-01-28] MEDS ORDERED: Ondansetron HCl 2 MG / ML 2ML Vial ONE (07:56)
== END 2024-01-28 08:09 | disposition home or self-care (01) ==
LOC: ORSCSDS 06:05
PROVIDERS: Ophthalmology
PROC: 08RJ3JZ Replacement of Right Lens with Synthetic Substitute, Percutaneous Approach (ICD-10-PCS; principal; 2024-01-28 07:30)
DX: H25.811 Combined forms of age-related cataract, right eye (principal); I10 Essential (primary) hypertension; I25.10 Atherosclerotic heart disease of native coronary artery without angina pectoris; F41.9 Anxiety disorder, unspecified; I25.2 Old myocardial infarction; Z79.899 Other long term (current) drug therapy; F17.210 Nicotine dependence, cigarettes, uncomplicated
CPT/HCPCS: A9270; J2003; J2405; J3301; V2632

== ENCOUNTER 2024-03-24 13:49 | Emergency (ER) | payer OTHER ==
[~2024-03-24] VITALS: Ht 170.2 cm; Wt 75.8 kg
[~2024-03-24 13:49] MED LIST changes: +Chantix1 MG; +LOSA50; -Povidone-Iodine 450 DROP/30 ML Solution ONE; -Tetracaine HCl/Pf 0.5% Opth Soln 4 ml ONE
[2024-03-24 15:11] VITALS: BP 160/103
== END 2024-03-24 18:28 | disposition home or self-care (01) ==
LOC: ER 13:49
DX: S93.401A Sprain of unspecified ligament of right ankle, initial encounter (principal); I10 Essential (primary) hypertension; F17.210 Nicotine dependence, cigarettes, uncomplicated; Z79.01 Long term (current) use of anticoagulants; Z79.899 Other long term (current) drug therapy; Z88.6 Allergy status to analgesic agent; X58.XXXA Exposure to other specified factors, initial encounter
CPT/HCPCS: 99283

== ENCOUNTER 2024-12-05 02:38 | Inpatient (IN) | payer BC ==
[~2024-12-05] VITALS: Ht 170.2 cm; Wt 68.0 kg
[~2024-12-05 02:38] MED LIST changes: +CEPH500 PO; -LOSA50; +LOSA50 PO
[2024-12-05 02:52] LABS: BASOPHILS ABSOLUTE AUTO 0.06 K/mm3 (0.00-0.23); BASOPHILS PERCENT AUTO 1 % (0-2); EOSINOPHILS ABSOLUTE AUTO 0.00 K/mm3 (0.00-0.68); EOSINOPHILS PERCENT AUTO 0 % (0-6); Hematocrit 42.5 % (37.0-53.0); Hemoglobin 14.7 g/dL (13.5-17.5); IMMATURE GRAN ABSOLUTE AUTO 0.02 K/mm3 (0.00-0.10); IMMATURE GRAN PERCENT AUTO 0 % (0-1); LYMPHOCYTES ABSOLUTE AUTO 2.33 K/mm3 (0.84-5.20); LYMPHOCYTES PERCENT AUTO 31 % (21-46); MONOCYTES ABSOLUTE AUTO 0.40 K/mm3 (0.16-1.47); MONOCYTES PERCENT AUTO 5 % (4-13); Mean Corpuscular HGB Conc 34.6 g/dL (31.5-36.5); Mean Corpuscular Volume 94 fL (80-100); NEUTROPHILS ABSOLUTE AUTO 4.80 K/mm3 (1.96-9.15); NEUTROPHILS PERCENT AUTO 63 % (41-73); NRBC ABSOLUTE 0.00 K/mm3 (0.00-0.02); NRBC Auto 0.0 /100 WBC (0.0-0.2); Platelet Count 139 K/mm3 (150-400); RDW Coefficient Variation 13.0 % (11.7-14.2); RDW Standard Deviation 44.7 fL (35.1-46.3)
[2024-12-05 03:08] LABS: Alanine Aminotransfer (ALT/SGP 64.0 U/L (12-78); Albumin, Blood 4.0 g/dL (3.4-5.0); Albumin/Globulin Ratio 1.1 (0.8-1.8); Anion Gap 9.0 mmol/L (3-11); Aspartate Aminotrans (AST/SGOT 72.0 U/L (12-37); Bilirubin, Total 0.3 mg/dL (0.1-1.0); Blood Urea Nitrogen 10.0 mg/dL (8-24); CO2, Blood 27.0 mmol/L (21-32); Calcium, Blood 8.3 mg/dL (8.5-10.1); Chloride, Blood 107.0 mmol/L (98-108); Creatinine, Blood 0.72 mg/dL (0.60-1.20); Globulin, Blood 3.5 g/dL (2.2-4.0); Glucose, Blood 91.0 mg/dL (70-99); Magnesium, Blood 2.1 mg/dL (1.6-2.4); Potassium, Blood 3.7 mmol/L (3.5-5.5); Sodium, Blood 139.0 mmol/L (136-145); Total Protein, Blood 7.5 g/dL (6.4-8.2)
[2024-12-05] MEDS ORDERED: FLU VACC TS2025-26(6MOS UP)/PF 45 MCG/0.5 ML SYRINGE IM ONE (03:55)
[2024-12-05 06:15] VITALS: BP 163/89
[2024-12-05 06:27] LABS: BASOPHILS ABSOLUTE AUTO 0.05 K/mm3 (0.00-0.23); BASOPHILS PERCENT AUTO 1 % (0-2); EOSINOPHILS ABSOLUTE AUTO 0.00 K/mm3 (0.00-0.68); EOSINOPHILS PERCENT AUTO 0 % (0-6); Hematocrit 44.1 % (37.0-53.0); Hemoglobin 15.2 g/dL (13.5-17.5); IMMATURE GRAN ABSOLUTE AUTO 0.02 K/mm3 (0.00-0.10); IMMATURE GRAN PERCENT AUTO 0 % (0-1); LYMPHOCYTES ABSOLUTE AUTO 2.29 K/mm3 (0.84-5.20); LYMPHOCYTES PERCENT AUTO 32 % (21-46); MONOCYTES ABSOLUTE AUTO 0.31 K/mm3 (0.16-1.47); MONOCYTES PERCENT AUTO 4 % (4-13); Mean Corpuscular HGB Conc 34.5 g/dL (31.5-36.5); Mean Corpuscular Volume 93 fL (80-100); NEUTROPHILS ABSOLUTE AUTO 4.40 K/mm3 (1.96-9.15); NEUTROPHILS PERCENT AUTO 62 % (41-73); NRBC ABSOLUTE 0.00 K/mm3 (0.00-0.02); NRBC Auto 0.0 /100 WBC (0.0-0.2); Platelet Count 138 K/mm3 (150-400); RDW Coefficient Variation 12.9 % (11.7-14.2); RDW Standard Deviation 44.3 fL (35.1-46.3)
[2024-12-05 06:45] LABS: Alanine Aminotransfer (ALT/SGP 65.0 U/L (12-78); Albumin, Blood 4.1 g/dL (3.4-5.0); Albumin/Globulin Ratio 1.1 (0.8-1.8); Anion Gap 11.0 mmol/L (3-11); Aspartate Aminotrans (AST/SGOT 68.0 U/L (12-37); Bilirubin, Total 0.4 mg/dL (0.1-1.0); Blood Urea Nitrogen 10.0 mg/dL (8-24); CO2, Blood 27.0 mmol/L (21-32); Calcium, Blood 9.0 mg/dL (8.5-10.1); Chloride, Blood 104.0 mmol/L (98-108); Creatinine, Blood 0.66 mg/dL (0.60-1.20); Globulin, Blood 3.7 g/dL (2.2-4.0); Glucose, Blood 81.0 mg/dL (70-99); Potassium, Blood 3.9 mmol/L (3.5-5.5); Sodium, Blood 138.0 mmol/L (136-145); Total Protein, Blood 7.8 g/dL (6.4-8.2)
--- NOTE | 2024-12-05 06:47 | NUR ---
SHIFT SUMMARY: PT ARRIVES TO PCU 8 FROM THE ER, VIA GURNEY AROUND 0610. PT TRANSFERRED TO HOSPITAL BED, SBA. PT ORIENTED TO ROOM AND CALL LIGHT. PT IS A&0X4, SLOW TO ANSWER, COOPERATIVE WITH CARE. HTN, 163/89 ON RA. SR 70'S. CURRENTLY DENIES PAIN. BLE LOOKS LIKE PATCHES OF PSORIASIS, TWO SCABS ON LEFT BARKLEY. PT STATES HIS LAST DRINK OF ALCOHOL WAS RIGHT BEFORE ARRIVING TO HOSPITAL. PT VOIDED IN URINAL INDEPENDENTLY AT BEDSIDE. CLEAR, YELLOW URINE. PT IS NPO. BED IN LOWEST POSITION, CALL LIGHT WITHIN REACH. BED ALARM SET FOR PT'S SAFETY.
[2024-12-05 07:17] LABS: CHOL/HDL RATIO 1.8; Cholesterol 252 mg/dL (50-200); HDL Cholesterol 142 mg/dL (>39); LDL/HDL RATIO 0.6; Low Density Lipoprotein Chol 88 mg/dL (0-110); Triglycerides 108 mg/dL (30-160); Very Low Density Lipoprot Chol 22 mg/dL (6-32)
[2024-12-05] MEDS ORDERED: LORazepam 2 MG/ML 1ML Injection IM PRN (07:40)
[2024-12-05] MEDS ORDERED: HydrALAZINE HCl 20 MG / ML 1ML Vial IV PRN (07:45)
[2024-12-05] MEDS ORDERED: NS 1,000 ML IV PRN (07:45)
[2024-12-05] MEDS ORDERED: Ondansetron HCl 2 MG / ML 2ML Vial IV PRN (07:45)
[2024-12-05 07:50] VITALS: BP 163/88
[2024-12-05] MEDS ORDERED: LORazepam 2 MG/ML 1ML Injection IV PRN ×3 (07:50→15:55)
[2024-12-05] MEDS ORDERED: Magnesium Sulf 2 GM/Water 50ML 50 ML IV STA (07:51)
[2024-12-05 12:23] VITALS: BP 160/93
--- NOTE | 2024-12-05 13:33 | NUR ---
Upon receiving a reerral for spiritual care, I visited the patient. He talks at length about his grief over the deaths of 3 out of 4 of his children, about his poor way of managing the grief (alcohol and depression) and what healthy steps forward might look like (more music, song writing and connecting to a hinduism). I provided therapeutic listening, grief support, spiritual relationship counselor and prayer. The patient responded well and showed signs of greater peace and a more hopeful look at the future.
[2024-12-05 15:35] VITALS: BP 154/85
--- NOTE | 2024-12-05 16:10 | NUR ---
ASSUMPTION OF CARE REPORT RECEIVED FROM OFF GOING DAY SHIFT NURSE. PATIENT IS LYING IN BED, PATIENT IN NO SIGNS OF DISTRESS AT THIS TIME. BED IN LOWEST POSTION, CALL LIGHT WITHIN REACH.
[2024-12-05] MEDS ORDERED: BENZ100A PO (18:35)
[2024-12-05] MEDS ORDERED: LISI20 PO (18:36)
[2024-12-05 19:30] VITALS: BP 155/97
--- NOTE | 2024-12-05 20:14 | NUR ---
ASSUMED CARE OF THIS PATIENT AT 1900. PT IS ALERT, ORIENTATED TO SELF, PERSON, AND SITUATION. PT UNSURE OF DATE, AN LOCATION. PT SPOUSE AT BEDSIDE DURING BEDSIDE SHIFT REPORT. PT MEDICATED PRIO TO THIS RN ARRIVAL D/T VISUAL HALLUCINATIONS, PT NOW DENYING SYSMTOMS AFTER BEING MEDICATED. IV FLUIDS STARTED PER EMAR. PT CURRENTLY SITTING UP IN BED EATING A SNACK. BED IN LOW, BED ALARM ON FOR SAFETY, CALL LIGHT IN REACH.
[2024-12-05 23:50] VITALS: BP 179/98
[2024-12-06 03:21] VITALS: BP 155/94
[2024-12-06 04:53] LABS: Anion Gap 8.0 mmol/L (3-11); Blood Urea Nitrogen 17.0 mg/dL (8-24); CO2, Blood 25.0 mmol/L (21-32); Calcium, Blood 9.0 mg/dL (8.5-10.1); Chloride, Blood 103.0 mmol/L (98-108); Creatinine, Blood 0.71 mg/dL (0.60-1.20); Glucose, Blood 95.0 mg/dL (70-99); Potassium, Blood 3.4 mmol/L (3.5-5.5); Sodium, Blood 133.0 mmol/L (136-145)
[2024-12-06 07:55] VITALS: BP 166/96
--- NOTE | 2024-12-06 11:09 | NUR ---
ASSUMPTION OF CARE ASSUMED CARE OF PATIENT AT 0700 AFTER BEDSIDE SHIFT REPORT. SLEEPING IN BED, AROUSABLE SLIGHTLY CONFUSED, A0 X 3. VITALS SIGNS WITH IN NORMAL LIMITS AND STABLE. MAP >65. HR 80-90 SINUS RHYTHM. 02 SATS >95% ON ROOM AIR. PATIENT IS INDEPENDENT IN ROOM. DENIES CHEST PAIN PRESSURE AT THIS TIME. PATIENT RESTING COMFORTABLY IN BED IN LOWEST POSITION, CALL LIGHT WITH IN REACH.
[2024-12-06 12:38] VITALS: BP 155/90
[2024-12-06] MEDS ORDERED: Aminophylline 250MG / 10ML 10 ML Vial ONE (13:35)
[2024-12-06 15:20] VITALS: BP 152/95
--- NOTE | 2024-12-06 17:05 | NUR ---
SHIFT SUMMARY: PT HAS BEEN A&Ox3, UNSURE OF EXACT DATE, HAS BEEN COOPERATIVE W/CARE AND ABLE TO COMMUNICATE NEEDS. CIWA SCORED Q4H AND PRN, PT MEDICATED PER EMAR, MAIN C/O SHAKINESS, HEADACHE, FEELING ANXIOUS. RESPIRATIONS EVEN, UNLABORED, O2 SATS MAINTAINED >93% ON RA. PT DENIES CP, SR ON MONITOR, RATE 70s-80s. STRESS TEST COMPLETED THIS AFTERNOON, PROVIDER TO BEDSIDE TO DISCUSS RESULTS AND PLAN OF CARE. AT THIS TIME, PT IS AGREEABLE TO STAY IN HOSPITAL TO CONTINUE PLAN OF ETOH WITHDRAWAL. PT HAS BEEN 1P ASSIST WHEN UP IN ROOM, UNSTEADY GAIT BUT FOLLOWS COMMANDS, BED ALARM ON FOR SAFETY. PT CURRENTLY RESTING IN RECLINER. IV FLUIDS INFUSING PER ORDERS. CALL LIGHT IN REACH.
[2024-12-06 20:07] VITALS: BP 139/88
[2024-12-06 23:05] VITALS: BP 144/82
[2024-12-07] VITALS (7 sets, daily range): BP systolic 134–163; BP diastolic 82–104
[2024-12-07 05:16] LABS: Anion Gap 11.0 mmol/L (3-11); Blood Urea Nitrogen 9.0 mg/dL (8-24); CO2, Blood 24.0 mmol/L (21-32); Calcium, Blood 9.1 mg/dL (8.5-10.1); Chloride, Blood 106.0 mmol/L (98-108); Creatinine, Blood 0.65 mg/dL (0.60-1.20); Glucose, Blood 113.0 mg/dL (70-99); Potassium, Blood 3.5 mmol/L (3.5-5.5); Sodium, Blood 137.0 mmol/L (136-145)
--- NOTE | 2024-12-07 06:04 | NUR ---
SHIFT SUMMARY AT START OF SHIFT PT A&Ox3, WITH MOMENTS OF INCREASED CONFUSION BUT ABLE TO BE REORIENTED. AT THIS TIME PT IS A&Ox1-2 WITH VISUAL AND AUDIBLE HALLUCINATIONS AND DIFFICULT TO REORIENT. CIWA RANGED FROM 8-19 THIS SHIFT, MEDICATED PER EMAR. BP STABLE, SINUS 80's, DENIES CP/PRESSURE. SpO2> 92% RA, DENIES SOB. ONE EPISODE OF ABDOMINAL PAIN, MEDICATED PER EMAR. CONTINENT OF URINE AND BOWEL, 1 ASSIST TO BATHROOM. NO OTHER EVENTS, WILL REPORT TO ONCOMING RN.
--- NOTE | 2024-12-07 08:08 | NUR ---
OOB stand by assist to walk to bathroom to void. Shaky, conversant but disoriented. Sitting on side of bed eating breakfast with good appetite. Last CIWAat 0500 before administration of meds was reported to be 19.
--- NOTE | 2024-12-07 08:11 | NUR ---
CIWA score at this time is 5.
[2024-12-07] MEDS ORDERED: Enoxaparin 40 MG/0.4 ML SYR SC ONE (13:05)
--- NOTE | 2024-12-07 16:26 | NUR ---
SHIFT SUMMARY: PT A/O X3-4 THIS SHIFT, MOMENTS OF CONFUSION AND ANXIETY THIS MORNING, PT HAS INCREASINGLY BECOME MORE ALERT THIS SHIFT. ABLE TO REORIENT WHEN CONFUSED AFTER WAKING UP. STRENGTH EQUAL BILATERALLY, SBA WITH FWW TO BATHROOM DUE TO SHAKINESS/LINES. CIWA RANGED 5-8 THIS SHIFT, MEDICATED PER EMAR. NS INFUSING @100. SINUS 80-90s, OTHER VSS. DENIES CHEST PAIN/PRESSURE. ROOM AIR, SATS >95%. DENIES SOB. PT SITTING UP IN BED WATCHING TV AND WRITING ON NOTEBOOK, CALL WITHIN REACH. WILL REPORT TO ONCOMING RN.
--- NOTE | 2024-12-07 18:48 | NUR ---
UPDATE: INCREASING WITHDRAWL SX NOTED, CIWA SCORE OF 10 DESPITE HAVING 50MG LIBRIUM AT APPROX 1730. MEDICATED PT WITH 1MG ATIVAN PER EMAR. PT NOT CURRENTLY AGITATED, DESCRIBED FEELING "LOOPY" AND ASKING "AM I STILL ALIVE". HR 80-90s, DENIES C/P. AT BEDSIDE. PT LYING IN BED, CALL IN REACH.
[2024-12-08 03:27] VITALS: BP 151/92
[2024-12-08 04:58] LABS: Anion Gap 9.0 mmol/L (3-11); Blood Urea Nitrogen 8.0 mg/dL (8-24); CO2, Blood 25.0 mmol/L (21-32); Calcium, Blood 9.0 mg/dL (8.5-10.1); Chloride, Blood 109.0 mmol/L (98-108); Creatinine, Blood 0.72 mg/dL (0.60-1.20); Glucose, Blood 106.0 mg/dL (70-99); Potassium, Blood 3.5 mmol/L (3.5-5.5); Sodium, Blood 139.0 mmol/L (136-145)
--- NOTE | 2024-12-08 05:19 | NUR ---
SHIFT SUMMARY MENTATION CONTINUES TO WAX AND WANE WITH PT BEING A/Ox2-3. REMAINS COOPERATIVE WITH CARE AND ABLE TO MAKE HIS NEEDS KNOWN. INTERMITTENT TACTILE DISTUBANCES WITH PT REPORTING THE FEELING OF SPIDERS CRAWLING OVER HIM. CIWA SYMPTOMS MANGED PER EMAR. CARDIAC, REMAINS IN SR 70-90'S WITH NO REPORTS OF PALPITATIONS OR DIZZINESS. PT REPORTED BRIEF EPISODE 4/10 SHARP LEFT SIDED CP WITH TINGLING SENSATION DOWN LEFT ARM. EKG PERFORMED AND SHOWN TO DR. PARKINSON. RESPIRATORY, MAINTAINS SPO2 >94% ON RA WITH NO REPORTS OF SOB OR DYSPNEA. GI/, ABLE TO AMBULATE TO BATHROOM WITH 1 PERSON ASSIST AND FWW TO VOID CLEAR YELLOW URINE. PT UNSTABLE ON HIS FEET WITH C/O GENERALIZED WEAKNESS. ENDORSED MINOR ABD PAIN, MANAGED WITH PRN MEDICATIONS. NS CONTINUES TO INFUSE ORDERED PER EMAR. NO NEW ORDERS AT THIS TIME, WILL REPORT TO ONCOMING RN. ARTEMIO HASTINGS OF THIS NOTE.
[2024-12-08 07:24] VITALS: BP 156/86
[2024-12-08] MEDS ORDERED: Enoxaparin 40 MG/0.4 ML SYR SC SCH (09:00)
[2024-12-08] MEDS ORDERED: Betamethasone Dip 0.05% Cream 15 gm TOP SCH (10:00)
--- NOTE | 2024-12-08 11:17 | NUR ---
Pt ambulatory to the bathroom, took a shower with staff standby assistance. Shaky and wobbly with the walking, but using the walker for increased stability. He has been sitting up in a chair since the shower, visiting with his parents and in the room.
[2024-12-08 11:20] VITALS: BP 131/79
--- NOTE | 2024-12-08 13:04 | NUR ---
Dash is sitting up in chair eating in-n-out burger which his brought to him. She is sitting in the room with him. CIWA score is 5 at this time.
--- NOTE | 2024-12-08 14:42 | NUR ---
Patient is lying in bed and resting but easily awakens at the sound of his name. He tells me that he is proud of not having a drink or smoke for several days and that he wants to build on that. I provided therapeutic listening and prayer. The patient responded well and showed signs of greater peace.
[2024-12-08 14:52] VITALS: BP 145/96
--- NOTE | 2024-12-08 14:54 | NUR ---
Ambulatory around the PCU unit, with 1 staff member. Pt wore gait belt, used walker just for stability. He took one break to sit in the chair for a few minutes and then walked back to PCU 9. He was slow, but able to tolerate the activity walking slowly. Sitting up in recliner chair at this time. Call light and phone within reach.
--- NOTE | 2024-12-08 17:47 | NUR ---
SHIFT SUMMARY PATIENT IS ALERT AND ORIENTED X3, ABLE TO FOLLOW COMMANDS AND MAKE NEEDS KNOWN. PATIENT IS INTERMITTENTLY CONFUSED TO DATE/TIME. INTERMITTENTLY REPORTING MODERATE TO SEVERE HEADACHES, NAUSEA, AND ANXIETY, SEE CIWAs FOR FURTHER INFORMATION, PATIENT MEDICATED PER EMAR, W/D SYMPTOMS IMPROVING BY END OF SHIFT. VSS, SPO2 >90% ON RA. PATIENT DENIES PRESENCE OF CHEST PAIN OR PRESSURE. RASH TO BLE AND BUTTOCKS NOTED, PATIENT DENIES PAIN OR ITCHING, PROVIDER MADE AWARE, NEW ORDERS RECEIVED. PATIENT IS CONTINENT OF STOOL AND URINE. PATIENT IS A SBA WITH A FWW FOR LINE AND CORD MANAGEMENT. PATIENT IS UP IN THE CHAIR, CHAIR ALARM IN PLACE, CALL LIGHT WITHIN REACH.
--- NOTE | 2024-12-08 18:59 | NUR ---
CIWA score 9 at time of bedside shift report. Pt given 50 mg librium at this time. Pt is sitting in the recliner, upright, with chair alarm on. STates he has no other needs at this time. Call light in his lap, he is using it to control the TV.
[2024-12-08 20:48] VITALS: BP 134/95
[2024-12-08 23:18] LABS: Source, Urine Clean Catch
[2024-12-08 23:26] VITALS: BP 144/100
[2024-12-08 23:38] LABS: Bilirubin, Urine Neg (Neg); Glucose Qualitative, Urine Neg (Neg); Ketones, Urine Neg (Neg); Leukocyte Esterase, Urine Neg (Neg); Protein, Urine Neg (Neg); Specific Gravity, Urine 1.015 (1.003-1.022); Urobilinogen, Urine NORM (Normal)
[2024-12-08 23:51] LABS: Color, Urine Yellow (P-Yellow)
[2024-12-09 03:15] VITALS: BP 135/81
[2024-12-09 04:03] LABS: Anion Gap 6.0 mmol/L (3-11); Blood Urea Nitrogen 14.0 mg/dL (8-24); CO2, Blood 27.0 mmol/L (21-32); Calcium, Blood 9.2 mg/dL (8.5-10.1); Chloride, Blood 108.0 mmol/L (98-108); Creatinine, Blood 0.71 mg/dL (0.60-1.20); Glucose, Blood 113.0 mg/dL (70-99); Potassium, Blood 3.8 mmol/L (3.5-5.5); Sodium, Blood 137.0 mmol/L (136-145)
--- NOTE | 2024-12-09 06:19 | NUR ---
SHIFT SUMMARY: PT A&OX3-4 OCCASIONALLY DISORIENTED TO TIME. VSS ON RA. PT BECAME AGITATED AND ANXIOUS DURING SHIFT WITH VISIBLE TREMOR AND REPORTS A 9/10 HEADACHE. PT REPORTS SEEING SHADOWS AROUND ROOM. CIWA RANGED 12-19. MEDICATED PER EMAR. 1 PERSON ASSIST WITH GAIT BELT AND FWW TO BATHROOM. AT BED. BED AND CHAIR ALARM ON PT GETS UP WITHOUT CALLING. FREQUENTLY EDUCATED TO USE CALL LIGHT. BED IS LOW AND LOCKED. CONTINUE WITH CURRENT PLAN OF CARE.
[2024-12-09 07:57] VITALS: BP 110/76
[2024-12-09 11:03] VITALS: BP 108/74
[2024-12-09 15:05] VITALS: BP 133/78
--- NOTE | 2024-12-09 15:31 | NUR ---
PT SUMMARY; PT CIWA 13-16 MEDICATED WITH BOTH ATIVAN AND LIBRIUM. PT STILL HALLUCINATING, TREMORS WORSENS WITH MOVEMENT, HEADACHES AND NAUSEA. VITALS HAS BEEN STABLE. PT HAD A SHOWER THIS MORNING ASSISTED. SLEPT PRETTY MUCH THE ENTIRE MORNING. IMPULSIVE AT TIMES SETTING CHAIR ALARM OFF IF NEEDED TO GO TO THE BATHROOM. REDIRECTABLE. ALERT AND ORIENTED X3. ABLE TO DISCUSS PLANS WITH THE PROVIDERS THIS MORNING. PT HAS BEEN EATING AND DRINKING WITH NO ISSUES. USES THE BATHROOM VIA WALKER ASSISTED FOR TOILETING. WILL REPORT TO ONCOMING SHIFT
[2024-12-09 17:42] VITALS: BP 111/82
[2024-12-09 19:23] VITALS: BP 113/70
[2024-12-10 00:05] VITALS: BP 124/76
[2024-12-10 04:11] VITALS: BP 106/67
[2024-12-10 04:30] LABS: Albumin, Blood 3.4 g/dL (3.4-5.0); Anion Gap 5 mmol/L (3-11); Blood Urea Nitrogen 13 mg/dL (8-24); CO2, Blood 29 mmol/L (21-32); Calcium, Blood 9.1 mg/dL (8.5-10.1); Chloride, Blood 107 mmol/L (98-108); Creatinine, Blood 0.79 mg/dL (0.60-1.20); Glucose, Blood 108 mg/dL (70-99); Phosphorus, Blood 3.7 mg/dL (2.5-4.9); Potassium, Blood 3.7 mmol/L (3.5-5.5); Sodium, Blood 137 mmol/L (136-145)
--- NOTE | 2024-12-10 06:16 | NUR ---
NO ACUTE EVENTS OVERNIGHT. PT SCORING 8-9 ON CIWA OVERNIGHT, MEDICATED WITH LIBRIUM PER APR. SLEEPING IN BED PT SLEEPS/RESTS IN RECLINER. PT HELPED TO BATHROOM WITH 1 PERSON ASSISTANCE W/ FWW. CHAIR ALARM ON. CALL LIGHT WITHIN REACH.
[2024-12-10 07:42] VITALS: BP 110/73
[2024-12-10 15:30] VITALS: BP 117/79
--- NOTE | 2024-12-10 17:32 | NUR ---
PT SUMMARY; PT'S LAST DOSE OF LIBRIUM THIS MORNING AT 0800 WITH CIWA 7. PT HAS BEEN ALERT AND ORIENTED X3, COOPERATIVE WITH CARES. PT HAS BEEN AMBULATING TO THE BATHROOM VIA WALKER ABLE TO AMBULATE AROUND THE UNIT WELL ASSISTED. CIWA HAS BEEN 5-7. WAS UPDATED ABOUT PLAN OF CARE. ETOH REHAB RESOURCES WAS GIVEN TO THE . FMLA PAPERWORKED WAS FILLE OUT BY DR MARIE. PT HAS BEEN EATING AND DRINKING WITH NO ISSUES. HAD 2 BMS FOR THE SHIFT. VITALS HAS BEEN STABLE. WILL REPORT TO ONCOMING SHIFT
[2024-12-10 20:08] VITALS: BP 104/51
--- NOTE | 2024-12-10 21:01 | NUR ---
ASSUMPTION OF CARE THIS RN ASSUMED CARE OF PATIENT AT 1900. PT A&O X3-4. REPORTS OCCASIONAL CONFUSION WHEN FIRST WAKING UP. REPORTS MILD VISUAL HALLUCINATIONS. NOTED TREMORS. NAUSEA/HEADACHE NOTED WELL. CIWA OF 9. MEDICATED WITH PO LIBRIUM. PT IN RECLINER WITH CHAIR ALARM IN PLACE. NO TELE. VSS. MOIST COUGH NOTED. CALL LIGHT WITHIN REACH. PT CALM AND COOPERATIVE WITH CARE AT THIS TIME. SBA TO BATHROOM.
[2024-12-11 03:47] VITALS: BP 119/70
--- NOTE | 2024-12-11 04:46 | NUR ---
SEE PREVIOUS NOTE. NO ACUTE CHANGES DURING THIS SHIFT. MEDICATED X1 WITH LIBRIUM AT BEGINNING OF SHIFT. CIWA OF 4 AT 0400 REASSESSMENT. VSS. AT BEDSIDE. NEURO INTACT. PT ABLE TO MAKE NEEDS KNOWN. THIS RN SPOKE TO MD HO REGARDING NICOTINE PATCH. ORDERED PER MD AND PATIENT REQUEST TO START THIS AM. PT REMAINS IN RECLINER. CALL LIGHT WITHIN REACH AND CHAIR ALARM ON. THIS RN WILL REPORT TO ONCOMING DAYSHIFT RN.
[2024-12-11 04:51] LABS: Albumin, Blood 3.4 g/dL (3.4-5.0); Anion Gap 6 mmol/L (3-11); Blood Urea Nitrogen 13 mg/dL (8-24); CO2, Blood 29 mmol/L (21-32); Calcium, Blood 8.8 mg/dL (8.5-10.1); Chloride, Blood 106 mmol/L (98-108); Creatinine, Blood 0.73 mg/dL (0.60-1.20); Glucose, Blood 127 mg/dL (70-99); Phosphorus, Blood 3.0 mg/dL (2.5-4.9); Potassium, Blood 3.6 mmol/L (3.5-5.5); Sodium, Blood 137 mmol/L (136-145)
[2024-12-11 07:41] VITALS: BP 133/77
[2024-12-11 11:33] VITALS: BP 137/80
--- NOTE | 2024-12-11 13:56 | NUR ---
UPDATE/TRANSFER OF CARE GAVE REPORT TO [facility] RN TAKING OVER FOR THIS PATIENT. PT CURRENTLY ON PHONE WITH [facility] FOR INPATIENT SCREENING. VITAL SIGNS STABLE. ALL BELONGINGS PACKED. WILL TRANSFER PT VIA W/C.
[2024-12-11 14:15] VITALS: BP 135/72
--- NOTE | 2024-12-11 14:50 | NUR ---
ASSUMPTION OF CARE NOTE: PATIENT ARRIVES TO ROOM AT 1414 VIA WC, TRANSFERRED TO BED c 1 ASSIST. ASSUME CARE OF PATIENT. VITALS TAKEN. PATIENT A/OX4, SLOW TO RESPOND, BUT ANSWER TO QUESTIONS APPROPRIATELY. PATIENT DENIES CP/PRESSURE, SOB, N/V AND DIZZINESS. PATIENT PERRLA, WEAKNESS TO L HAND-DIALYSIS NURSE/SQUEEZE. PATIENT REPORTS SENSATION INTACT, DENIES NUMBNESS AND TINGLING T/O. PATIENT HAS NO TELE, RA. PATIENT ORIENTATED TO ROOM AND CALL SYSTEM. PATIENT REPORTS BEING TIRED AND WANTING TO TAKE A NAP. PATIENT PROVIDED c FRESH ICE H2O AND DIET PEPSI. BED IN LOWEST POSITION, ALARM ON FOR SAFETY. CALL LIGHT IN REACH.
--- NOTE | 2024-12-11 16:48 | NUR ---
SHIFT NOTE: PATIENT HAS HAD NO NEW CHANGES SINCE TRANSFERRED TO UNIT. PATIENT CIWA ASSESSMENT SCORE 7. PATIENT RESTING IN BED, VISIBLE TREMORS, CONTINUES TO DENIES CP/PRESSURE, SOB AND DIZZINESS. PATIENT CONTINENT OF BLADDER AND AMBULATED TO BATHROOM/BACK IN BED c 1 ASSIST, UNSTEADY GAIT. BED IN LOWEST POSITION. BED ALARM ON FOR SAFETY. CALL LIGHT IN REACH.
[2024-12-11 19:40] VITALS: BP 118/68
--- NOTE | 2024-12-12 05:14 | NUR ---
SHIFT SUMMARY CIWAS BETWEEN 7-18 THIS EVENING. DOES WELL S/P SINGLE DOSE OF LIBRIUM. PT IS ABLE TO AMBULATE, THOUGH UNSTEADY, SO IS GIVEN FWW AND GAIT BELT, AND 1 PERSON STANDBY ASSIST IS INITIATED. BED ALARM ON, THOUGH PT IS APPROPRIATE AND NOT IMPULSIVE. A&OX4. TEARFUL THIS EVENING SPEAKING OF HIS NIGHTMARES AND PTSD FROM LOSING 2 CHILDREN. , AILIN SENT COPIES OF PT'S INSURANCE TO [facility] ADMISSIONS EMAIL, AND IS AWAITING APPROVAL FOR ADMISSION. PT DENYING ANY CP OR SOB THIS EVENING.
[2024-12-12 07:27] VITALS: BP 113/73
[2024-12-12] MEDS ORDERED: Folic Acid 1 MG TAB PO SCH (09:00)
--- NOTE | 2024-12-12 11:08 | NUR ---
The patient is sitting on a chair and alert. He tells me that he will discharge to "home" today. He has concerns about relapsing and states that he does not feel much better thatn when he came in. We talk about a good spiritual care discharge plan and ways that he can move towards a healthier life. He displays doubts about his ability to succeed. We discuss resources and how he can lean into them. We talk about [facility] as a resource that incorporates the spiritual aspects of moving towards sobriety. I provided prayer and spiritual guidance. The patient voices his appreciation.
[2024-12-12] MEDS ORDERED: CHLO25 PO (11:44)
[2024-12-12] MEDS ORDERED: Medication Education, Discharge Education XX ONE (11:55)
[2024-12-12] MEDS ORDERED: FOLI1 PO (12:29)
[2024-12-12] MEDS ORDERED: NICO21TP TOP (12:31)
[2024-12-12] MEDS ORDERED: LOSA50 PO (12:31)
[2024-12-12] MEDS ORDERED: B-1100 M1 PO (12:38)
--- NOTE | 2024-12-12 13:09 | NUR ---
DISCHARGE PT AOX4, COOPERATIVE, ABLE TO MAKE NEEDS KNONW. PT IND IN ROOM, ON ROOM AIR, TOLERATING MEDICATIONS. DIRECTOR OF MANUFACTURING OPERATIONS DC'D IV. THIS RN WENT OVER DC PAPERWORK WITH PT AND FAMILY MEMBER. DR DONALDSON WENT WITH PT, COPY IN CHART. ALL PT BELONGINGS WENT WITH PT. DIRECTOR OF MANUFACTURING OPERATIONS WHEELED PT DOWN TO PT ENTRANCE VIA WC.
== END 2024-12-12 12:59 | disposition home or self-care (01) | DRG 897 ==
LOC: ER 02:38 → ERHOLD 02:39 → PCU 02:39 → MEDS 12-11 14:10 → ENPENDDIS 12-12 11:09 → MEDS 12-12 12:59
PROVIDERS: Nurse Practitioner Acute Care; Student in an Organized Health Care Education/Training Program; ADMIT Internal Medicine
PROC: HZ2ZZZZ Detoxification Services for Substance Abuse Treatment (ICD-10-PCS; principal; 2024-12-05)
DX: F10.239 Alcohol dependence with withdrawal, unspecified (principal); R44.0 Auditory hallucinations; I10 Essential (primary) hypertension; F17.210 Nicotine dependence, cigarettes, uncomplicated; K21.9 Gastro-esophageal reflux disease without esophagitis; L40.9 Psoriasis, unspecified; E78.5 Hyperlipidemia, unspecified; R07.89 Other chest pain; Z71.41 Alcohol abuse counseling and surveillance of alcoholic; Z88.8 Allergy status to other drugs, medicaments and biological substances; Z86.61 Personal history of infections of the central nervous system; Z86.73 Personal history of transient ischemic attack (TIA), and cerebral infarction without residual deficits; Z79.899 Other long term (current) drug therapy
CPT/HCPCS: 36415; 71045; 78452; 80048; 80053; 80061; 80069; 81003; 83036; 83690; 83735; 83880; 84484; 85025; 93005; 93010; 93017; 93306; 96361; 96365; 96366; 96367; 96368; 96375; 96376; 99285-25; A9270; A9500; G0378; J0280; J0360; J0706; J1650; J2060; J2470; J2785; J3411; J3475; J3480; J7030; J7050